=== PATIENT | male | born 1960 | race Caucasian/White ===

== ENCOUNTER 2021-04-28 06:08 | Inpatient (IN) | payer OTHER ==
[~2021-04-28] VITALS: Ht 172.7 cm; Wt 77.0 kg
[~2021-04-28 06:08] MED LIST: "\\\"BP MED\\\""; AZIT250 PO; HYDACE5 PO; [UNRECOGNIZED DRUG - REMARK]
[2021-04-28 06:34] LABS: BASOPHILS ABSOLUTE AUTO 0.11 K/mm3 (0.00-0.23); BASOPHILS PERCENT AUTO 1 % (0-2); EOSINOPHILS ABSOLUTE AUTO 0.02 K/mm3 (0.00-0.68); EOSINOPHILS PERCENT AUTO 0 % (0-6); Hematocrit 46.1 % (37.0-53.0); Hemoglobin 16.7 g/dL (13.5-17.5); IMMATURE GRAN ABSOLUTE AUTO 0.26 K/mm3 (0.00-0.10); IMMATURE GRAN PERCENT AUTO 1 % (0-1); LYMPHOCYTES ABSOLUTE AUTO 1.28 K/mm3 (0.84-5.20); LYMPHOCYTES PERCENT AUTO 7 % (21-46); MONOCYTES ABSOLUTE AUTO 0.91 K/mm3 (0.16-1.47); MONOCYTES PERCENT AUTO 5 % (4-13); Mean Corpuscular HGB 32.2 pg (26.0-34.0); Mean Corpuscular HGB Conc 36.2 g/dL (31.5-36.5); Mean Corpuscular Volume 89 fL (80-100); Mean Platelet Volume 10.1 fL (9.1-12.4); NEUTROPHILS ABSOLUTE AUTO 16.71 K/mm3 (1.96-9.15); NEUTROPHILS PERCENT AUTO 87 % (41-73); Platelet Count 271 K/mm3 (150-400); RDW Coefficient Variation 13.7 % (11.7-14.2); RDW Standard Deviation 45.1 fL (35.1-46.3); Red Blood Cell Count 5.19 M/mm3 (4.30-5.90); White Blood Cell Count 19.29 K/mm3 (4.00-11.30)
[2021-04-28 06:56] LABS: Alanine Aminotransfer (ALT/SGP 30 U/L (12-78); Albumin, Blood 3.5 g/dL (3.4-5.0); Albumin/Globulin Ratio 0.9 (0.8-1.8); Alk Phos 129 U/L (50-136); Anion Gap 17 mmol/L (6-16); Aspartate Aminotrans (AST/SGOT 21 U/L (12-37); Bilirubin, Total 0.6 mg/dL (0.1-1.0); Blood Urea Nitrogen 4 mg/dL (8-24); Bun/Creatinine Ratio 4.9 (12.0-20.0); CO2, Blood 19 mmol/L (21-32); Calcium, Blood 8.8 mg/dL (8.5-10.1); Chloride, Blood 101 mmol/L (98-108); Creatinine, Blood 0.82 mg/dL (0.60-1.20); Globulin, Blood 3.9 g/dL (2.2-4.0); Glomerular Filtration Rate >60 (60-); Glucose, Blood 135 mg/dL (70-99); Potassium, Blood 3.5 mmol/L (3.5-5.5); Sodium, Blood 137 mmol/L (136-145); Total Protein, Blood 7.4 g/dL (6.4-8.2); Troponin I <0.015 ng/mL (0.000-0.040)
[2021-04-28 11:04] LABS: Source, Urine Clean Catch
[2021-04-28 11:41] LABS: Appearance, Urine Clear (Clear); Bilirubin, Urine Neg (Neg); Blood, Urine Neg (Neg); Color, Urine Yellow (P-Yellow); Glucose Qualitative, Urine Neg (Neg); Ketones, Urine 1+ (Neg); Leukocyte Esterase, Urine Neg (Neg); Nitrite, Urine Neg (Neg); Protein, Urine 2+ (Neg); Urobilinogen, Urine NORM (Normal); pH, Urine 6.5 (5.0-8.0)
[2021-04-28 11:54] LABS: Hyaline Casts 0-2 /lpf (0-2)
[2021-04-28 11:55] LABS: Squamous Epithelial Cells Rare /hpf (Few)
[2021-04-28 11:56] LABS: Bacteria Not Seen /hpf
[2021-04-28 11:57] LABS: Mucus Heavy (0-Heavy)
[2021-04-28] MEDS ORDERED: ATOR10 PO (12:05)
[2021-04-28] MEDS ORDERED: AMLO5 PO (12:05)
[2021-04-28] MEDS ORDERED: BACL20 PO (12:07)
[2021-04-28] MEDS ORDERED: QUET25 PO (12:08)
[2021-04-28] MEDS ORDERED: LORA.5 PO (12:08)
[2021-04-28] MEDS ORDERED: MIRT15 PO (12:08)
[2021-04-28] MEDS ORDERED: SERT50 PO (12:09)
--- NOTE | 2021-04-28 15:55 | NUR ---
PATIENT ARRIVAL PATIENT ARRIVED TO PCU BY ED MARCIA AT APROX 1410. PATIENT TRANSFERD TO PCU BED WITH SBA. VSS. TELE SR 90S. SPO2 >90% ON RA. PATIENT A/OX4. PATIENT ORIENTATED TO THE BEDROOM AND CALL LIGHT. BED IN LOWEST POSITION AND CALL LIGHT WITHIN REACH. WILL CONTINUE TO MONITOR AND PROVIDE CARE
--- NOTE | 2021-04-28 18:04 | NUR ---
[facility] CALLED AT 1646 FOR CRITICAL LACTIC AT 2.3. ZAYRA RN NOTIFED . THIS RN NOTIFED CHARGE NURSE.
--- NOTE | 2021-04-28 18:11 | NUR ---
SHIFT SUMMARY PATIENT A/OX4. VSS. TELE SINUS 92. SPO2 >90% ON RA. NO ACUTE CHANGES. WILL CONTINUE TO MONITOR AND PROVIDE CARE.
[2021-04-28 20:05] LABS: Adenovirus F 40/41 Not Detected (NOT DETECT); Astrovirus Not Detected (NOT DETECT); Campylobacter Sp Not Detected (NOT DETECT); Cryptosporidium Not Detected (NOT DETECT); Cyclospora Cayetanensis Not Detected (NOT DETECT); E. Coli O157 Not Detected (NOT DETECT); Entamoeba Histolytica Not Detected (NOT DETECT); Enteroaggregative E. coli-EAEC Not Detected (NOT DETECT); Enteropathogenic E. coli-EPEC Not Detected (NOT DETECT); Enterotoxigenic E. coli-ETEC Not Detected (NOT DETECT); Giardia Lamblia Not Detected (NOT DETECT); Norovirus GI/GII Not Detected (NOT DETECT); Plesiomonas Shigelloides Not Detected (NOT DETECT); Rotavirus A Not Detected (NOT DETECT); Salmonella Sp Not Detected (NOT DETECT); Sapovirus Not Detected (NOT DETECT); Shiga Toxin-prod E. coli-STEC Not Detected (NOT DETECT); Shigella/Enteroin E. coli-EIEC Not Detected (NOT DETECT); Vibrio Cholerae Not Detected (NOT DETECT); Vibrio Sp Not Detected (NOT DETECT); Yersinia Enterocolitica Not Detected (NOT DETECT)
[2021-04-29 03:31] LABS: BASOPHILS ABSOLUTE AUTO 0.06 K/mm3 (0.00-0.23); BASOPHILS PERCENT AUTO 1 % (0-2); EOSINOPHILS PERCENT AUTO 2 % (0-6); Hematocrit 40.3 % (37.0-53.0); Hemoglobin 13.9 g/dL (13.5-17.5); IMMATURE GRAN ABSOLUTE AUTO 0.05 K/mm3 (0.00-0.10); IMMATURE GRAN PERCENT AUTO 0 % (0-1); LYMPHOCYTES ABSOLUTE AUTO 2.07 K/mm3 (0.84-5.20); LYMPHOCYTES PERCENT AUTO 17 % (21-46); MONOCYTES ABSOLUTE AUTO 0.92 K/mm3 (0.16-1.47); MONOCYTES PERCENT AUTO 7 % (4-13); Mean Corpuscular HGB 31.7 pg (26.0-34.0); Mean Corpuscular HGB Conc 34.5 g/dL (31.5-36.5); Mean Corpuscular Volume 92 fL (80-100); Mean Platelet Volume 10.7 fL (9.1-12.4); NEUTROPHILS ABSOLUTE AUTO 9.05 K/mm3 (1.96-9.15); NEUTROPHILS PERCENT AUTO 73 % (41-73); Platelet Count 208 K/mm3 (150-400); RDW Coefficient Variation 14.1 % (11.7-14.2); RDW Standard Deviation 47.8 fL (35.1-46.3); Red Blood Cell Count 4.38 M/mm3 (4.30-5.90); White Blood Cell Count 12.35 K/mm3 (4.00-11.30)
[2021-04-29 03:51] LABS: Alanine Aminotransfer (ALT/SGP 22 U/L (12-78); Albumin/Globulin Ratio 0.9 (0.8-1.8); Alk Phos 103 U/L (50-136); Anion Gap 5 mmol/L (6-16); Aspartate Aminotrans (AST/SGOT 19 U/L (12-37); Bilirubin, Total 0.8 mg/dL (0.1-1.0); Blood Urea Nitrogen 6 mg/dL (8-24); Bun/Creatinine Ratio 6.3 (12.0-20.0); CO2, Blood 27 mmol/L (21-32); Calcium, Blood 8.1 mg/dL (8.5-10.1); Chloride, Blood 107 mmol/L (98-108); Creatinine, Blood 0.95 mg/dL (0.60-1.20); Globulin, Blood 3.2 g/dL (2.2-4.0); Glomerular Filtration Rate >60 (60-); Glucose, Blood 89 mg/dL (70-99); Potassium, Blood 3.3 mmol/L (3.5-5.5); Sodium, Blood 139 mmol/L (136-145); Total Protein, Blood 6.2 g/dL (6.4-8.2)
--- NOTE | 2021-04-29 07:16 | NUR ---
SHIFT SUMMARY PT ALERT AND ORIENTED X4. HR NSR 80'S AND SATS OVER 95% ON RA. USES BEDSIDE URINAL TO VOID. ON AND OFF SLEEP THROUGHOUT THE NIGHT. BP STABLE. PT DENIES PAIN OR NAUSEA. PT HAS TREMORS WHILE MOVING. UNSTEADY ON FEET. PROGRESSIVE COUGH. PT LEFT IN BED RESTING WITH CALL ALARM AT SIDE. WILL CONTINUE TO MONITOR UNTIL REPORT GIVEN
--- NOTE | 2021-04-29 11:30 | NUR ---
WILL BE DOING IN HOUSE TRANSFER TO MEDICAL FLOOR ROOM 340 ONCE PATIENT IS DONE WITH THE BEDSIDE COMMODE. CALL LIGHT WITHIN REACH.
--- NOTE | 2021-04-29 12:09 | NUR ---
PT ARRIVED ON THE UNIT VIA WHEELCHAIR FROM PCU WITH RN. PATIENT IS ALERT AND ORIENTED X 4 TRANSFERRED STANBY ASSIST UNSTEADY GAIT W/TREMORS. SKIN ASSESSMENT COMPLETED SKIN IS WARM DRY AND ITACT NO OPEN AREAS. PATIENT HAS A NOTICABLE STUTTER WHEN TALKING. PATIENT IN STBLE CONDITION.
--- NOTE | 2021-04-29 15:11 | NUR ---
SHIFT SUMMARY PATIENT ARRIVED ON UNIT FROM PCU VIA WHEELCHAIR. PATIENT IS ALERT AND ORINTED X4 IN NO DISTRESS. NO COMPLAINTS OF PAIN. PATIENT GAIT IS UNSTEADY AND HAS TREMORS WHEN AMBULATING AND STUTTERS WHEN TALIKING FROM [place]. PATIENT COMPLANED OF ANXIOUSNESS NAD WAS MEDICATED. PATIENT IN STABLE CONDITION. LR INFUSING AT 100ML/HR.
[2021-04-30 04:41] LABS: BASOPHILS ABSOLUTE AUTO 0.09 K/mm3 (0.00-0.23); BASOPHILS PERCENT AUTO 1 % (0-2); EOSINOPHILS ABSOLUTE AUTO 0.23 K/mm3 (0.00-0.68); EOSINOPHILS PERCENT AUTO 3 % (0-6); Hematocrit 38.1 % (37.0-53.0); IMMATURE GRAN ABSOLUTE AUTO 0.04 K/mm3 (0.00-0.10); IMMATURE GRAN PERCENT AUTO 1 % (0-1); LYMPHOCYTES ABSOLUTE AUTO 2.63 K/mm3 (0.84-5.20); LYMPHOCYTES PERCENT AUTO 32 % (21-46); MONOCYTES ABSOLUTE AUTO 0.77 K/mm3 (0.16-1.47); MONOCYTES PERCENT AUTO 9 % (4-13); Mean Corpuscular HGB 31.6 pg (26.0-34.0); Mean Corpuscular HGB Conc 34.1 g/dL (31.5-36.5); Mean Corpuscular Volume 93 fL (80-100); Mean Platelet Volume 10.9 fL (9.1-12.4); NEUTROPHILS ABSOLUTE AUTO 4.52 K/mm3 (1.96-9.15); NEUTROPHILS PERCENT AUTO 55 % (41-73); Platelet Count 186 K/mm3 (150-400); RDW Coefficient Variation 14.1 % (11.7-14.2); RDW Standard Deviation 48.2 fL (35.1-46.3); Red Blood Cell Count 4.12 M/mm3 (4.30-5.90); White Blood Cell Count 8.28 K/mm3 (4.00-11.30)
[2021-04-30 05:08] LABS: Albumin, Blood 2.6 g/dL (3.4-5.0); Anion Gap 7 mmol/L (6-16); Blood Urea Nitrogen 5 mg/dL (8-24); Bun/Creatinine Ratio 6.2 (12.0-20.0); CO2, Blood 25 mmol/L (21-32); Chloride, Blood 109 mmol/L (98-108); Glomerular Filtration Rate >60 (60-); Glucose, Blood 92 mg/dL (70-99); Phosphorus, Blood 2.9 mg/dL (2.5-4.9); Sodium, Blood 141 mmol/L (136-145)
--- NOTE | 2021-04-30 06:47 | NUR ---
SHIFT SUMMARY PATIENT ALERT AND ORIENTED. HAD NO COMPLAINTS OF PAIN OR SHORTNESS OF BREATH. NO ACUTE ISSUES NOTED OVERNIGHT. CALL LIGHT WITHIN REACH. REPORT GIVEN TO ONCOMING RN.
--- NOTE | 2021-04-30 16:45 | NUR ---
SHIFT SUMMARY PATIENT IS ALERT AND ORIENTED X4 IN STABLE CONDITION. PATIENT COMPLAINED OF DIARRHEA X3 LOOSE STOOL AND MEDICATED. UNEVENTFUL SHIT. WILL CONTINUE TO MONITOR.
--- NOTE | 2021-05-01 06:37 | NUR ---
SHIFT SUMMARY PATIENT ALERT AND ORIENTED. HAD NO COMPLAINTS OF PAIN OR SHORTNESS OF BREATH. MEDICATED PER EMAR FOR ANXIETY. NO ACUTE ISSUES NOTED OVERNIGHT. CALL LIGHT WITHIN REACH. REPORT GIVEN TO ONCOMING RN.
--- NOTE | 2021-05-01 16:51 | NUR ---
PT AOX4 AND COOPERATIVE OF CARE. PT STARTED SHIFT WITH LOOSE STOOL. DR WASHINGTON REQUESTED AND UPDATE LATER IN THE DAY. PT HAS NOT HAD ANOTHER STOOL YET, BUT HAS ACTIVE BOWEL TONES. POSSIBLE DISCHARGE TOMORROW. PT IS A TWO PERSON ASSIST TO BEDSIDE COMMODE. NO DISTRESS NOTED AT THIS TIME. CALL LIGHT IS WITHIN REACH AND BED ALARM PLACED.
--- NOTE | 2021-05-02 06:22 | NUR ---
SHIFT SUMMARY PATIENT ALERT AND ORIENTED. HAD NO COMPLAINTS OF PAIN OR SHORTNESS OF BREATH. NO ACUTE ISSUES NOTED OVERNGIHT. CALL LIGHT WITHIN REACH. REPORT GIVEN TO ONCOMING RN.
[2021-05-02] MEDS ORDERED: POTA10T PO (13:33)
[2021-05-02] MEDS ORDERED: FAMO40 PO (13:33)
--- NOTE | 2021-05-02 14:22 | NUR ---
DISCHARGE NOTE THIS RN REMOVED PT'S IV PER DOCUMENTATION, DC INSTRUCTIONS REVIEWED WITH PT WHO VERBALIZED UNDERSTANDING. PT ASSISTED INTO HOME CLOTHING BY THIS RN. BELONGINGS GATHERED FROM ROOM. PT ASSISTED INTO WHEELCHAIR AND TRANSPORTED TO PRIVATE VEHICLE FOR DC BY DIGESTION OPERATOR. PT HAS LEFT THE BUILDING WITH BELONGINGS PRESENT.
== END 2021-05-02 14:25 | disposition home or self-care (01) | DRG 392 ==
LOC: ER 06:08 → PCU 12:05 → MEDS 04-29 11:44 → ENPENDDIS 05-02 12:58 → MEDS 05-02 14:25
PROVIDERS: Emergency Medicine; Family Medicine; Nurse Practitioner Acute Care; ADMIT Hospitalist
DX: A08.4 Viral intestinal infection, unspecified (principal); E87.2 Acidosis; Z66 Do not resuscitate; E87.6 Hypokalemia; Z20.822 Contact with and (suspected) exposure to COVID-19; G20 Parkinson's disease; I10 Essential (primary) hypertension; F17.210 Nicotine dependence, cigarettes, uncomplicated; D64.9 Anemia, unspecified; E86.0 Dehydration; F32.9 Major depressive disorder, single episode, unspecified; K21.00 Gastro-esophageal reflux disease with esophagitis, without bleeding; E78.5 Hyperlipidemia, unspecified; F41.9 Anxiety disorder, unspecified; Z87.11 Personal history of peptic ulcer disease; Z88.8 Allergy status to other drugs, medicaments and biological substances; Z79.899 Other long term (current) drug therapy
CPT/HCPCS: 0097U; 36415; 71045; 74177; 80053; 80069; 81001; 83605; 83690; 83735; 83880; 84132; 84145; 84484; 85025; 87040; 93005; 93010; 94762; 96365-59; 96375; 99285-25; A9270; C9113; J0696; J1650; J2405; J3475; J3480; J7030; J7050; J7120; Q9967

== ENCOUNTER 2024-08-26 22:09 | Inpatient (IN) | payer OTHER ==
[~2024-08-26] VITALS: Ht 170.2 cm; Wt 85.0 kg
[~2024-08-26 22:09] MED LIST changes: +AMLO5 PO; +ATOR10 PO; +BACL20 PO; +FAMO40 PO; +LORA.5 PO; +MIRT15 PO; +POTA10T PO; +QUET25 PO; +SERT50 PO
[2024-08-26 22:57] LABS: BASOPHILS ABSOLUTE AUTO 0.16 K/mm3 (0.00-0.23); BASOPHILS PERCENT AUTO 1 % (0-2); EOSINOPHILS ABSOLUTE AUTO 0.15 K/mm3 (0.00-0.68); EOSINOPHILS PERCENT AUTO 1 % (0-6); Hemoglobin 13.1 g/dL (13.5-17.5); IMMATURE GRAN ABSOLUTE AUTO 0.19 K/mm3 (0.00-0.10); IMMATURE GRAN PERCENT AUTO 2 % (0-1); LYMPHOCYTES ABSOLUTE AUTO 1.83 K/mm3 (0.84-5.20); LYMPHOCYTES PERCENT AUTO 16 % (21-46); MONOCYTES ABSOLUTE AUTO 0.52 K/mm3 (0.16-1.47); MONOCYTES PERCENT AUTO 5 % (4-13); Mean Corpuscular HGB 32.8 pg (26.0-34.0); Mean Corpuscular HGB Conc 33.6 g/dL (31.5-36.5); Mean Corpuscular Volume 98 fL (80-100); NEUTROPHILS ABSOLUTE AUTO 8.77 K/mm3 (1.96-9.15); NEUTROPHILS PERCENT AUTO 76 % (41-73); Platelet Count 641 K/mm3 (150-400); RDW Standard Deviation 86.3 fL (35.1-46.3); White Blood Cell Count 11.62 K/mm3 (4.00-11.30)
[2024-08-26 23:19] LABS: Acetaminophen, Random 10.9 ug/mL (10.0-30.0); Albumin, Blood 2.5 g/dL (3.4-5.0); Albumin/Globulin Ratio 0.6 (0.8-1.8); Bilirubin, Total 0.7 mg/dL (0.1-1.0); Bun/Creatinine Ratio 8.9 (12.0-20.0); Calcium, Blood 8.6 mg/dL (8.5-10.1); Creatinine, Blood 0.79 mg/dL (0.60-1.20); Globulin, Blood 4.4 g/dL (2.2-4.0); Potassium, Blood 4.3 mmol/L (3.5-5.5); Total Protein, Blood 6.9 g/dL (6.4-8.2)
[2024-08-26] MEDS ORDERED: Ketorolac Tromethamine 30mg Vial IV ONE (23:40)
[2024-08-27] VITALS (25 sets, daily range): BP systolic 112–156; BP diastolic 50–114
[2024-08-27] MEDS ORDERED: Ondansetron HCl 2 MG / ML 2ML Vial ONE (00:06)
[2024-08-27] MEDS ORDERED: Ondansetron HCl 2 MG / ML 2ML Vial IV ONE (00:10)
[2024-08-27 01:52] LABS: Albumin, Blood 2.6 g/dL (3.4-5.0); Albumin/Globulin Ratio 0.6 (0.8-1.8); Bilirubin, Direct 0.3 mg/dL (0.0-0.3); Bilirubin, Indirect 0.3 mg/dL (0.1-0.7); Bilirubin, Total 0.6 mg/dL (0.1-1.0); Globulin, Blood 4.4 g/dL (2.2-4.0)
[2024-08-27] MEDS ORDERED: FLU VACC TS2024-25(6MOS UP)/PF 45 MCG/0.5 ML SYRINGE IM ONE (02:10)
[2024-08-27 02:14] LABS: International Normalized Ratio 1.14; Prothrombin Time Results 12.1 Sec (9.7-11.5)
[2024-08-27] MEDS ORDERED: Ondansetron HCl 2 MG / ML 2ML Vial IV PRN (02:40)
[2024-08-27] MEDS ORDERED: Lactated Ringer's 1,000 ML IV SCH (03:00)
[2024-08-27 03:11] LABS: Acetaminophen, Random 5.8 ug/mL (10.0-30.0); Albumin, Blood 2.3 g/dL (3.4-5.0); Albumin/Globulin Ratio 0.6 (0.8-1.8); Bilirubin, Direct 0.4 mg/dL (0.0-0.3); Bilirubin, Indirect 0.3 mg/dL (0.1-0.7); Bilirubin, Total 0.7 mg/dL (0.1-1.0); Globulin, Blood 4.1 g/dL (2.2-4.0); Total Protein, Blood 6.4 g/dL (6.4-8.2)
[2024-08-27] MEDS ORDERED: Metoclopramide HCl 5MG / ML 2ML Vial IV PRN (04:10)
[2024-08-27] MEDS ORDERED: Heparin Sodium 10,000 Units/ML 1ML MDV IV ONE (07:35)
[2024-08-27] MEDS ORDERED: Heparin Sodium,Porcine/0.5 NS 500 ML IV SCH (07:35)
[2024-08-27 08:53] LABS: Acetaminophen, Random 2.4 ug/mL (10.0-30.0); Albumin, Blood 2.2 g/dL (3.4-5.0); Albumin/Globulin Ratio 0.6 (0.8-1.8); Bilirubin, Direct 0.2 mg/dL (0.0-0.3); Bilirubin, Indirect 0.5 mg/dL (0.1-0.7); Bilirubin, Total 0.7 mg/dL (0.1-1.0); Total Protein, Blood 6.2 g/dL (6.4-8.2)
[2024-08-27] MEDS ORDERED: Enoxaparin 40 MG/0.4 ML SYR SC SCH (09:00)
--- NOTE | 2024-08-27 09:40 | NUR ---
ADMIT NOTE... PT ARRIVED TO THE UNIT A&Ox4. PT'S VS STABLE. HE IS IN SR IN THE 80'S-90'S. HE IS ON RA WITH O2 SATS>95% L/S SLIGHTLY COARSE IN THE UPPER LOBES, PT IS AN EVERY DAY SMOKER, HE DECLINED ANY NICOTINE PATCHES/GUM. BT PRESENT AND HYPOACTIVE. PT C/O OF 5/10 NAUSEA THIS WAS MEDICATED PER EMAR WITH GOOD RESULTS. PT ARRIVED ON AN HEPARIN DRIP RUNNING PER ORDERS. NAC DRIP RUNNING PER ORDERS AND LR AT 100MLS/HR. PT WAS C/O OF 10/10 PAIN TO HIS RLE. PULSES FOUND TO THE BLE WITH DOPPLER.
[2024-08-27] MEDS ORDERED: FentaNYL Citrate 50 MCG/ML 2 ML Injection IV PRN (10:30)
[2024-08-27] MEDS ORDERED: Cyclobenzaprine HCl 10 MG Tab PO SCH (13:00)
[2024-08-27] MEDS ORDERED: Dose Adjust by Pharmacy XX STA (16:23)
--- NOTE | 2024-08-27 17:53 | NUR ---
BOIL/SORE ON PT'S LEFT LEG... PT HAS A BOIL/SORE ON HIS LEFT UPPER THIGH, PICTURES ARE IN THE CHART AND THE PROVIDERS ARE AWARE.
--- NOTE | 2024-08-27 17:54 | NUR ---
SHIFT SUMMARY.... NO ACUTE NEGATIVE CHANGES NOTED SINCE ADMIT. PT'S VS HAVE BEEN STABLE. THE PAIN TO THE PT'S RLE HAS GREATLY IMPROVED WITH FLEXERIL GIVEN PER EMAR. PT HAS REFUSED HIS DINNER BUT HAS AGREED TO DRINK THE ENSURE. PT HAS BEEN ABLE TO USE THE URINAL AT THE BEDSIDE INDEPENDENTLY. HEPARIN DRIP WAS DECREASED FROM 18U/KG/HR TO 17U/KG/HR PER PHARMACY. ACCORDING TO POISON CONTROL PT'S LFTs AND PT/INR SHOULD BE DRAWN AROUND 2300 TO DETERMINE IF ANOTHER DOSE OF N.A.C. SHOULD BE GIVEN NO LATER THAN 2HRS AFTER THE BAG IS DONE INFUSING. PULSES FOUND VIA DOPPLER.
[2024-08-27] MEDS ORDERED: QUEtiapine Fumarate 25 MG Tab PO SCH (21:00)
[2024-08-27] MEDS ORDERED: Mirtazapine 15 MG Tab PO SCH (21:00)
[2024-08-27] MEDS ORDERED: HYDROcodone 5-APAP 325 TAB PO PRN (23:00)
[2024-08-27 23:22] LABS: Anti-Xa UFH, PHA Monitoring 0.53 IU/mL; International Normalized Ratio 1.2; Prothrombin Time Results 12.7 Sec (9.7-11.5)
[2024-08-27 23:27] LABS: Albumin/Globulin Ratio 0.6 (0.8-1.8); Bilirubin, Direct 0.4 mg/dL (0.0-0.3); Bilirubin, Indirect 0.3 mg/dL (0.1-0.7); Bilirubin, Total 0.7 mg/dL (0.1-1.0); Globulin, Blood 3.5 g/dL (2.2-4.0); Total Protein, Blood 5.5 g/dL (6.4-8.2)
[2024-08-28] VITALS (18 sets, daily range): BP systolic 97–150; BP diastolic 54–86
[2024-08-28] MEDS ORDERED: Clarify Drug Order XX ONE ×2 (00:35→06:10)
--- NOTE | 2024-08-28 00:51 | NUR ---
POISON CONTROLLED CALLED AND UPDATED ON PT LABS/CONDITION. INSTRUCTED TO D/C NAC AFTER INFUSING BAG COMPLETE. WILL NOTIFY
[2024-08-28 05:00] LABS: BASOPHILS ABSOLUTE AUTO 0.13 K/mm3 (0.00-0.23); BASOPHILS PERCENT AUTO 1 % (0-2); EOSINOPHILS ABSOLUTE AUTO 0.24 K/mm3 (0.00-0.68); EOSINOPHILS PERCENT AUTO 2 % (0-6); Hematocrit 33.3 % (37.0-53.0); Hemoglobin 11.5 g/dL (13.5-17.5); IMMATURE GRAN ABSOLUTE AUTO 0.35 K/mm3 (0.00-0.10); IMMATURE GRAN PERCENT AUTO 3 % (0-1); LYMPHOCYTES ABSOLUTE AUTO 3.67 K/mm3 (0.84-5.20); LYMPHOCYTES PERCENT AUTO 27 % (21-46); MONOCYTES ABSOLUTE AUTO 1.43 K/mm3 (0.16-1.47); MONOCYTES PERCENT AUTO 11 % (4-13); Mean Corpuscular HGB Conc 34.5 g/dL (31.5-36.5); Mean Corpuscular Volume 96 fL (80-100); Mean Platelet Volume 8.8 fL (9.1-12.4); NEUTROPHILS ABSOLUTE AUTO 7.71 K/mm3 (1.96-9.15); NEUTROPHILS PERCENT AUTO 57 % (41-73); Platelet Count 526 K/mm3 (150-400); RDW Coefficient Variation 24.9 % (11.7-14.2); RDW Standard Deviation 83.6 fL (35.1-46.3); Red Blood Cell Count 3.48 M/mm3 (4.30-5.90); White Blood Cell Count 13.53 K/mm3 (4.00-11.30)
--- NOTE | 2024-08-28 05:13 | NUR ---
SHIFT SUMMERY PT HAS HAD NO ACUTE CHANGES OVERNIGHT, LABS IMPROVING. PT HAS BEEN ALERT AND ORIENTED X4. PAIN MANAGED PER EMAR. PULSES REMAIN INTACT IN BLE. PT IS TOLERATING PO W/OUT N/V. HE HAS BEEN CONTINENT OF URINE. HE IS ABLE TO MAKE NEEDS KNOWN AND HAS BEEN COMPLIANT W/CARE. HE HAS BEEN ST ON THE PHYSICIAN IN PRIVATE PRACTICE. BP WNL. OXYGEN SAT >92% ON ROOM AIR.
[2024-08-28 05:40] LABS: Albumin, Blood 2.1 g/dL (3.4-5.0); Albumin/Globulin Ratio 0.6 (0.8-1.8); Bilirubin, Total 0.8 mg/dL (0.1-1.0); Bun/Creatinine Ratio 5.3 (12.0-20.0); Calcium, Blood 8.5 mg/dL (8.5-10.1); Creatinine, Blood 0.76 mg/dL (0.60-1.20); Globulin, Blood 3.6 g/dL (2.2-4.0); Potassium, Blood 3.2 mmol/L (3.5-5.5); Total Protein, Blood 5.7 g/dL (6.4-8.2)
[2024-08-28] MEDS ORDERED: Potassium Chloride 20 MEQ TabCR PO ONE ×2 (07:15→11:05)
[2024-08-28] MEDS ORDERED: DULoxetine HCL 30 MG Cap DR PO ONE (08:30)
[2024-08-28] MEDS ORDERED: Sertraline HCl 50 MG Tab PO SCH (09:00)
[2024-08-28] MEDS ORDERED: Gabapentin 300 MG Cap PO SCH (10:00)
[2024-08-28] MEDS ORDERED: Pregabalin 75 MG Cap PO SCH (10:00)
[2024-08-28] MEDS ORDERED: Dose Adjust by Pharmacy XX STA (11:29)
--- NOTE | 2024-08-28 11:54 | NUR ---
ASSUMED CARE AT 0700, PT IS A/OX4 WITH SLIGHTLY SLURRED SPEECH. HE REPORTS 9/10 PAIN IN HIS RLE. TREATING PER OCT. VERBALIZES NEEDS AND OBEYS COMMANDS. VSS, WITH INTERMITTENT TACHYCARDIA 110'S-120'S WITH MOVEMENT. CURRENTLY ON HEPARIN GTT AT 17. PAIN IS BEING MANAGED MODERATELY WELL WITH CURRENT ORDERS. PT TO START NEW MEDICATIONS, SEE NEW ORDERS. BLE WARM TO TOUCH, VERY DRY, PULSES PALPABLE WITH DOPPLER ONLY. PT ABLE TO AMBULATE FROM BED TO CHAIR WITH FWW, BUT VERY WEAK AND UNSTEADY. PT ALSO REPORTED DIZZINESS AND LIGHTHEADEDNESS WITH AMBULATION. PT THEN REPORTED NAUSEA AND BEGAN VOMITING. TREATED WITH ZOFRAN PER EMAR. OT/PT EVAL FOR HOME HEALTH/SNF NEEDS. PT STATUS CHANGED TO MED W/O TELE AT THIS TIME.
--- NOTE | 2024-08-28 17:18 | NUR ---
SHIFT SUMMARY PT A/OX4, OBEYS COMMANDS, VERBALIZES NEEDS. PT REPORTS 5-9/10 PAIN IN HIS RIGHT LEG T/O SHIFT. SINUS RHYTHM WITH HR IN 100'S-110'S, PT CHANGED TO MEDICAL STATUS W/O TELEMETRY TODAY. PT DENIES CHEST PAIN/PRESSURE. PEDAL PULSES AUDIBLE WITH DOPPLER. NO BM, PT DID REPORT NAUSEA FOLLOWED WITH VOMITING, MEDICATED PER EMAR. ON RA, SATTING ABOVE 90%. PT WORKED WITH OT/PT, TODAY. SEE ASSESSMENTS.
--- NOTE | 2024-08-28 23:44 | NUR ---
PT NOTED TO BE TACHYCARDIC. PLACED ON MONITOR, RATE 140-160. HAS NOW SLOWED TO 100S. EKG DONE-AFIB RVR. NOTIFIED DR PAGE. ORDERS GIVEN. PT DENIES ANY CHEST PAIN/DISCOMFORT. HEPARIN GTT ALREADY INFUSING. BP WNL AT THIS TIME.
[2024-08-28] MEDS ORDERED: Metoprolol Tartrate 1 MG/ML 5 ML VIAL IV ONE (23:45)
[2024-08-29] VITALS (11 sets, daily range): BP systolic 81–145; BP diastolic 60–96
--- NOTE | 2024-08-29 00:15 | NUR ---
PT GIVEN LOPRESSOR. SR IN THE 80S. PT DID MIGUEL BREIFLY BUT BP REMAINED STABLE. PT LOC DID NOT CHANGE, HE DID REPORT SOME DIZZINESS THAT RESOLVED. PT PLACED ON 3L NC. DR PAGE NOTIFIED.
[2024-08-29] MEDS ORDERED: Cyclobenzaprine HCl 10 MG Tab PO PRN (00:55)
[2024-08-29 03:30] LABS: Hematocrit 28.9 % (37.0-53.0); Hemoglobin 9.5 g/dL (13.5-17.5); Mean Corpuscular HGB 32.5 pg (26.0-34.0); Mean Corpuscular HGB Conc 32.9 g/dL (31.5-36.5); Mean Corpuscular Volume 99 fL (80-100); Mean Platelet Volume 9.2 fL (9.1-12.4); NRBC ABSOLUTE 0.07 K/mm3 (0.00-0.02); NRBC Auto 0.5 /100 WBC (0.0-0.2); Platelet Count 479 K/mm3 (150-400); RDW Coefficient Variation 25.2 % (11.7-14.2); RDW Standard Deviation 86.8 fL (35.1-46.3); Red Blood Cell Count 2.92 M/mm3 (4.30-5.90); White Blood Cell Count 13.39 K/mm3 (4.00-11.30)
[2024-08-29 03:57] LABS: Alanine Aminotransfer (ALT/SGP 66 U/L (12-78); Albumin/Globulin Ratio 0.6 (0.8-1.8); Alk Phos 131 U/L (50-136); Anion Gap 13 mmol/L (3-11); Aspartate Aminotrans (AST/SGOT 15 U/L (12-37); Bilirubin, Total 0.7 mg/dL (0.1-1.0); Blood Urea Nitrogen 6 mg/dL (8-24); Bun/Creatinine Ratio 7.3 (12.0-20.0); CHOL/HDL RATIO 3.8; CO2, Blood 24 mmol/L (21-32); Calcium, Blood 8.3 mg/dL (8.5-10.1); Chloride, Blood 108 mmol/L (98-108); Cholesterol 96 mg/dL (50-200); Creatinine, Blood 0.82 mg/dL (0.60-1.20); Globulin, Blood 3.4 g/dL (2.2-4.0); Glomerular Filtration Rate 99 (60-); Glucose, Blood 94 mg/dL (70-99); HDL Cholesterol 25 mg/dL (>39); LDL/HDL RATIO 0.7; Low Density Lipoprotein Chol 17 mg/dL (0-110); Potassium, Blood 3.6 mmol/L (3.5-5.5); Sodium, Blood 141 mmol/L (136-145); Total Protein, Blood 5.4 g/dL (6.4-8.2); Triglycerides 272 mg/dL (30-160); Very Low Density Lipoprot Chol 54 mg/dL (6-32)
--- NOTE | 2024-08-29 05:51 | NUR ---
SHIFT SUMMERY PT HAS BEEN ALERT AND ORIENTED X4 AND HAS RESTED WELL OVERNIGHT. HE DID GO INTO AFIB W/RVR. MEDICATIONS GIVEN PER MD ORDER. PT CONVERTED BACK INTO SR. BP WNL. OXYGEN SAT >92% ON 3LNC. PT VOIDS IN THE URINAL. HEPARIN GTT INFUSING PER MD ORDER, SEE [facility]. PULSES INTACT, MARKED FOR DOPPLER BLE.
[2024-08-29] MEDS ORDERED: Dose Adjust by Pharmacy XX STA (06:25)
[2024-08-29 06:59] LABS: Percent Saturation 43.7 % (20.0-50.0)
--- NOTE | 2024-08-29 08:15 | NUR ---
[place] of care: Patient is alert, oriented, & pleasant, resting in bed. Does complain of 7/10 pain to R thigh. In ST 100-105, with stable blood pressures. Oxygen saturation of 99% so weaned from 3L NC to RA with oxygen sat currently 92%. Clear lung sounds but does have a congested cough, non-productive. Bilat pedal pulses dopplerable. Heparin gtt infusing. Orders for med floor with tele. Will continue to monitor.
[2024-08-29] MEDS ORDERED: DULoxetine HCL 30 MG Cap DR PO SCH (09:00)
--- NOTE | 2024-08-29 09:13 | NUR ---
PT ARRIVED TO UNIT. PATIENT TRANSFFERED TO OUR BED VIA SLIDING. VITAL SIGNS TAKEN AND STABLE. PULSES FOUND VIA DOOPPLER AND HELL PROTECTORS WERE ADDED FOR PROTECTION. BED AT THE LOWEST POSIITON AND CALL ILGHT WITHINR EACH.
--- NOTE | 2024-08-29 09:23 | NUR ---
THIS RN TO ASSUME CARE OF PATIENT. PATIENT IS RESTING IN ROOM AFTER BEING SETTLED IN AND ASSESSMENT DONE. PATIENT HAS BED AT THE LOWEST POSITION , CALL LIGHT WITHIN REACH, EVEN AND UNLABORED RESPIRATIONS.
--- NOTE | 2024-08-29 09:47 | NUR ---
md to bedside: md urrutia to bedside and talked with patient. md would like verification of medications the patient takes as he can't recall. would like to patient to work with physical therapy and we are waiting on his insurance to approve a rehab and patient will status change to medical.
--- NOTE | 2024-08-29 10:50 | NUR ---
PATIENT REPORTS THAT PAIN IS STILL THE SAME AFTER GIVNG MORE MEDICATION PER EMAR. THIS RN OFFERED A HEATING PAD TO THIGH AND PATIENT AGREED. WILL CHECK IN AFTER HEATING PAD HAS WARMED UP. PATIENT HAS CALL LIGHT WITHIN REACH, BED AT THE LOWEST POSITION AND WATCHING TV.
--- NOTE | 2024-08-29 14:50 | NUR ---
PATIENT LEFT TO IMAGING VIA GURNEY.
--- NOTE | 2024-08-29 15:07 | NUR ---
patient returned from imaging and was transffered via slider sheet back to bed. vital signs taken and stable. patient states his pain level continues to be a 7-8 in his right thigh but declined the fetanyl as he stated he didn't feel any relief. Is now getting a bed bath from [facility].
--- NOTE | 2024-08-29 15:57 | NUR ---
CALL PLACED TO RESIDENT: THIS RN CALLED RESIDENT ON CASE TO REQUEST BOWEL CARE MEDS PATIENT STATED IT HAD BEEN SEVERAL DAYS WITHOUT HAVING ONE. MD TO PLACE ORDERS.
--- NOTE | 2024-08-29 17:00 | NUR ---
SHIFT SUMMARY: PATIENT IS ALERT AND ORIENTED X4 AND ACTIVE IN HIS CARE. ON TELE SHOWING TACH WITH RATE 110. IS SATTING >92% ON 1 LITER VIA NASAL CANNULA. PATIENT DENIES WEARING OXYGEN AT HOME BUT IS NEEDING SOME HE DESATS TO 80'S. OREN WORKED WITH PHYSICAL THERAPY TODAY AND WAS ABLE TO WALK AROUND IN ROOM AND GET INTO CHAIR. PATIENT NEEDED AROUND THE CLOCK COVERAGE FOR PAIN AND NEEDED MEDICATIONS PER EMAR FOR BREAKTHROUGH PAIN. PATIENT HAD A CHEST X-RAY DONE AND CURRENTLY WAITING FOR RESULTS. HEPARIN DRIP CONTINUES PER EMAR. THIS RN CALLED RESIDENT TEAM TO ADD BOWEL CARE MEDICATIONS AND RESIDENT STATED HE WOULD PLACE ORDERS. PATIENT WAS ABLE TO GET SOME REST UPON TRANSFERRING TO OUR UNIT. WILL CONTINUE TO MONITOR UNTIL SHIFT CHANGE AND NIGHT RN ASSUMES CARE.
[2024-08-29] MEDS ORDERED: Polyethylene Glycol 3350 17 gm PO PRN (17:05)
[2024-08-29] MEDS ORDERED: Docusate Sodium/Senna 1 Tab PO PRN (17:05)
--- NOTE | 2024-08-29 18:29 | NUR ---
REPORT WAS CALLED AND GIVEN TO OSVALDO COONEY WHO WILL BE RECEIVING PATIENT.
--- NOTE | 2024-08-29 18:46 | NUR ---
TRANSFER NOTE: PATIENT WAS TRANSFERRED VIA BED WITH ALL PERSONAL BELONGINGS. PATIENT IS ALERT AND ORIENTED X4 AND COOPERATIVE WITH HIS CARE. PATIENT DENIED NEEDING TO NOTIFY ANYONE OF THE MOVE IN ROOMS. WAS NOT CONNECTED TO OXYGEN ON THE TRANSFER.
--- NOTE | 2024-08-29 18:49 | NUR ---
PT TRANSFERED FROM U. REPORT RECEIVED FROM FELECIA COONEY.
[2024-08-30 02:48] VITALS: BP 122/69
[2024-08-30] MEDS ORDERED: Dose Adjust by Pharmacy XX STA (04:04)
[2024-08-30] MEDS ORDERED: Heparin Sodium 5000 Units/ML 1ML MDV IV ONE (04:05)
--- NOTE | 2024-08-30 06:15 | NUR ---
NIGHT SHIIFT SUMMARY PT A/OX4. PLEASANT AND COOPERATIVE. ABLE TO MAKE NEEDS KNOWN. PT C/O OF 8-10/10 PAIN IN RIGHT LEG. RIGHT LEG MORE SWOLLEN THAN THE LEFT LEG. HEPARIN DOSING CHANGED AND BOLUS GIVEN. CALL LIGHT ACCESSIBLE. CARE WILL CONTINUE UNTIL REPORT GIVEN TO ONCOMING NURSE.
[2024-08-30 08:11] VITALS: BP 108/68
[2024-08-30 09:00] LABS: Hematocrit 26.8 % (37.0-53.0); Hemoglobin 8.8 g/dL (13.5-17.5); Mean Corpuscular HGB 33.7 pg (26.0-34.0); Mean Corpuscular HGB Conc 32.8 g/dL (31.5-36.5); Mean Corpuscular Volume 103 fL (80-100); Mean Platelet Volume 10.8 fL (9.1-12.4); NRBC ABSOLUTE 0.04 K/mm3 (0.00-0.02); NRBC Auto 0.4 /100 WBC (0.0-0.2); Platelet Count 447 K/mm3 (150-400); RDW Coefficient Variation 23.9 % (11.7-14.2); RDW Standard Deviation 87.1 fL (35.1-46.3); Red Blood Cell Count 2.61 M/mm3 (4.30-5.90); White Blood Cell Count 11.22 K/mm3 (4.00-11.30)
[2024-08-30 09:11] LABS: Albumin/Globulin Ratio 0.6 (0.8-1.8); Bilirubin, Total 0.4 mg/dL (0.1-1.0); Calcium, Blood 8.6 mg/dL (8.5-10.1); Creatinine, Blood 0.66 mg/dL (0.60-1.20); Globulin, Blood 3.5 g/dL (2.2-4.0); Potassium, Blood 3.2 mmol/L (3.5-5.5); Total Protein, Blood 5.5 g/dL (6.4-8.2)
[2024-08-30 09:32] LABS: BAND PERCENT MAN 2 % (0-8); BASOPHILS PERCENT MAN 0 % (0-2); EOSINOPHILS ABSOLUTE MAN 0.22 K/mm3 (0.00-0.68); EOSINOPHILS PERCENT MAN 2 % (0-6); LYMPHOCYTES ABSOLUTE MAN 3.14 K/mm3 (0.84-5.20); LYMPHOCYTES PERCENT MAN 28 % (21-46); MONOCYTES ABSOLUTE MAN 0.44 K/mm3 (0.16-1.47); MONOCYTES PERCENT MAN 4 % (4-13); MYELOCYTE ABSOLUTE MAN 0.44 K/mm3 (0.00-0.00); MYELOCYTE PERCENT MAN 4 % (0-0); NEUTROPHILS ABSOLUTE MAN 6.95 K/mm3 (1.96-9.15); SEG NEUTROPHILS PERCENT MAN 60 % (41-73); TOTAL CELLS COUNTED 100
[2024-08-30] MEDS ORDERED: Apixaban 5 MG Tab PO SCH (12:42)
[2024-08-30 15:53] VITALS: BP 107/61
[2024-08-30] MEDS ORDERED: Potassium Chloride 20 MEQ TabCR PO ONE (16:00)
--- NOTE | 2024-08-30 17:00 | NUR ---
SHIFT SUMMARY PATIENT MEDICATED FOR PAIN THROUGHOUT SHIFT WITH SOME RELIEF. ELAQUIS STARTED HEPARIN DRIP STOPPED. HE IS ORIENTEDX4 AND COOPERATIVE WITH CARE. BED IN LOWEST POSITION, CALL LIGHT IN REACH.
[2024-08-30 19:14] VITALS: BP 101/62
[2024-08-31 02:46] VITALS: BP 119/71
--- NOTE | 2024-08-31 04:35 | NUR ---
SHIFT SUMMARY: "MELO" IS A&OX4. VSS, O2 REQUIRIED TITRATING UP WHILE PT WAS SLEEPING (SNORING RESPIRATIONS NOTED) TO 3-4 LPM, BACK DOWN TO 1 LPM WHILE AWAKE. CONTINUOUS PULSE OX IN PLACE. HE IS USING THE URINAL WITHOUT DIFFICULTY AND HAS COMPLAINED OF POORLY CONTROLLED PAIN IN HIS RIGHT LEG. PT STATES HE DISCUSSED WITH THE DOCTOR YESTERDAY AND WAS EXPECTING NEW PAIN MEDICATION ORDERS. UNFORTUNATELY, THE DOCTOR'S NOTE FROM YESTERDAY IS NOT AVAILABLE AT THIS TIME. HE IS ABLE TO TURN AND REPOSITION HIMSELF IN BED, HAS NOT BEEN OOB THIS SHIFT. HE IS LYING IN BED WITH THE CALL LIGHT IN REACH. WILL GIVE REPORT TO THE ONCOMING NURSE.
[2024-08-31 06:56] LABS: Hematocrit 26.7 % (37.0-53.0); Hemoglobin 8.6 g/dL (13.5-17.5); Mean Corpuscular HGB 32.8 pg (26.0-34.0); Mean Corpuscular HGB Conc 32.2 g/dL (31.5-36.5); Mean Corpuscular Volume 102 fL (80-100); NRBC ABSOLUTE 0.06 K/mm3 (0.00-0.02); NRBC Auto 0.5 /100 WBC (0.0-0.2); Platelet Count 472 K/mm3 (150-400); RDW Coefficient Variation 25.2 % (11.7-14.2); RDW Standard Deviation 90.9 fL (35.1-46.3); Red Blood Cell Count 2.62 M/mm3 (4.30-5.90); White Blood Cell Count 12.51 K/mm3 (4.00-11.30)
[2024-08-31 07:11] LABS: Albumin, Blood 2.1 g/dL (3.4-5.0); Albumin/Globulin Ratio 0.6 (0.8-1.8); Bilirubin, Total 0.4 mg/dL (0.1-1.0); Bun/Creatinine Ratio 8.5 (12.0-20.0); Calcium, Blood 8.6 mg/dL (8.5-10.1); Creatinine, Blood 0.71 mg/dL (0.60-1.20); Globulin, Blood 3.6 g/dL (2.2-4.0); Potassium, Blood 3.6 mmol/L (3.5-5.5); Total Protein, Blood 5.7 g/dL (6.4-8.2)
[2024-08-31 07:21] VITALS: BP 109/68
[2024-08-31 07:26] LABS: BASOPHILS PERCENT MAN 0 % (0-2); EOSINOPHILS PERCENT MAN 0 % (0-6); LYMPHOCYTES PERCENT MAN 24 % (21-46); METAMYELOCYTE ABSOLUTE MAN 0.25 K/mm3 (0.00-0.00); METAMYELOCYTE PERCENT MAN 2 % (0-0); MONOCYTES ABSOLUTE MAN 0.87 K/mm3 (0.16-1.47); MONOCYTES PERCENT MAN 7 % (4-13); MYELOCYTE ABSOLUTE MAN 0.75 K/mm3 (0.00-0.00); MYELOCYTE PERCENT MAN 6 % (0-0); NEUTROPHILS ABSOLUTE MAN 7.63 K/mm3 (1.96-9.15); SEG NEUTROPHILS PERCENT MAN 61 % (41-73); TOTAL CELLS COUNTED 100
[2024-08-31] MEDS ORDERED: Pregabalin 75 MG Cap PO SCH (11:00)
[2024-08-31 16:30] VITALS: BP 103/74
[2024-08-31 19:21] VITALS: BP 103/92
--- NOTE | 2024-08-31 19:26 | NUR ---
MELO WORKED WITH PHYSICAL THERAPY TODAY. PT RECOMMENDS 2 PERSON ASSIT WITH GB AND FWW. 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 PAIN TO HIS RIGHT THIGH/LEG. DR. DELGADO WITH ORDERS TO INCREASE PT'S LYRICA DOSE TO 300 MG BID TO CONTROL PAIN. D/C PLAN IS POSSIBLY TO [facility]. A&O X4. OXYGEN AT 1LPM DURING THE DAY TODAY. NO C/O SOB, BUT HE IS WEAK WITH TRANSFERRING. TELE IS SINUS IN THE 70'S WITH A BUNDLE BRANCH BLOCK. NO ADVERSE EVENTS TODAY.
[2024-09-01 03:29] VITALS: BP 124/59
--- NOTE | 2024-09-01 05:30 | NUR ---
SHIFT SUMMARY: URIEL IS A&OX4. VSS, O2 TITRATION REQUIRED WHILE PT SLEEPING, MAX 4 LPM. HE IS TOLERATING PO INTAKE WELL, USING THE URINAL WITHOUT DIFFICULTIES, AND HAS RESTED QUIETLY FOR THE MAJORITY OF THE SHIFT. HE COMPLAINED OF PAIN IN HIS RIGHT LEG AT THE BEGINNIG OF THE SHIFT, BUT HAS NOT COMPLAINED SINCE. IV TO BILATERAL ACs PATENT. HE IS LYING IN BED WITH THE CALL LIGHT IN REACH, BED IN LOWEST POSITION. WILL GIVE REPORT TO ONCOMING SHIFT.
[2024-09-01 05:53] LABS: BASOPHILS ABSOLUTE AUTO 0.14 K/mm3 (0.00-0.23); BASOPHILS PERCENT AUTO 1 % (0-2); EOSINOPHILS ABSOLUTE AUTO 0.57 K/mm3 (0.00-0.68); EOSINOPHILS PERCENT AUTO 4 % (0-6); Hematocrit 27.4 % (37.0-53.0); Hemoglobin 8.9 g/dL (13.5-17.5); IMMATURE GRAN PERCENT AUTO 6 % (0-1); LYMPHOCYTES ABSOLUTE AUTO 2.81 K/mm3 (0.84-5.20); LYMPHOCYTES PERCENT AUTO 19 % (21-46); MONOCYTES PERCENT AUTO 11 % (4-13); Mean Corpuscular HGB 33.1 pg (26.0-34.0); Mean Corpuscular HGB Conc 32.5 g/dL (31.5-36.5); Mean Corpuscular Volume 102 fL (80-100); Mean Platelet Volume 9.9 fL (9.1-12.4); NEUTROPHILS PERCENT AUTO 59 % (41-73); NRBC ABSOLUTE 0.04 K/mm3 (0.00-0.02); NRBC Auto 0.3 /100 WBC (0.0-0.2); Platelet Count 429 K/mm3 (150-400); RDW Coefficient Variation 24.9 % (11.7-14.2); RDW Standard Deviation 90.3 fL (35.1-46.3); Red Blood Cell Count 2.69 M/mm3 (4.30-5.90); White Blood Cell Count 14.82 K/mm3 (4.00-11.30)
[2024-09-01 06:17] LABS: Albumin, Blood 1.9 g/dL (3.4-5.0); Albumin/Globulin Ratio 0.5 (0.8-1.8); Bilirubin, Total 0.5 mg/dL (0.1-1.0); Calcium, Blood 8.7 mg/dL (8.5-10.1); Creatinine, Blood 0.75 mg/dL (0.60-1.20); Globulin, Blood 3.7 g/dL (2.2-4.0); Potassium, Blood 3.8 mmol/L (3.5-5.5); Total Protein, Blood 5.6 g/dL (6.4-8.2)
[2024-09-01 06:32] LABS: BASOPHILS ABSOLUTE MAN 0.14 K/mm3 (0.00-0.23); BASOPHILS PERCENT MAN 1 % (0-2); EOSINOPHILS ABSOLUTE MAN 1.03 K/mm3 (0.00-0.68); EOSINOPHILS PERCENT MAN 7 % (0-6); LYMPHOCYTES ABSOLUTE MAN 2.37 K/mm3 (0.84-5.20); LYMPHOCYTES PERCENT MAN 16 % (21-46); MONOCYTES ABSOLUTE MAN 1.18 K/mm3 (0.16-1.47); MONOCYTES PERCENT MAN 8 % (4-13); MYELOCYTE ABSOLUTE MAN 0.44 K/mm3 (0.00-0.00); MYELOCYTE PERCENT MAN 3 % (0-0); NEUTROPHILS ABSOLUTE MAN 9.63 K/mm3 (1.96-9.15); SEG NEUTROPHILS PERCENT MAN 65 % (41-73); TOTAL CELLS COUNTED 100
[2024-09-01 07:28] VITALS: BP 89/57
[2024-09-01] MEDS ORDERED: Ketorolac Tromethamine 15mg Vial IV PRN (07:30)
[2024-09-01] MEDS ORDERED: Potassium Chloride 20 MEQ TabCR PO ONE (14:20)
[2024-09-01 15:54] VITALS: BP 105/62
--- NOTE | 2024-09-01 18:09 | NUR ---
PT IS AO AND COOPERATIVE OF CARE. PT IS ABLE TO BE 2 PERSON TO BED OR CHAIR. PT IS ABLE TO USE CALL LIGHT AND MAKE NEEDS KNOWN. PT WORKED WITH PHYSICAL THERAPY TODAY AND WAS UP IN CHAIR FOR MEALS. TREATED LEG PAIN PER EMAR. NO DISTRESS NOTED AND CALL LIGHT WITHIN REACH. WILL CONTINUE TO MONITOR.
[2024-09-01 19:26] VITALS: BP 131/72
[2024-09-02 02:35] VITALS: BP 109/61
[2024-09-02 08:35] LABS: BASOPHILS ABSOLUTE AUTO 0.17 K/mm3 (0.00-0.23); BASOPHILS PERCENT AUTO 1 % (0-2); EOSINOPHILS ABSOLUTE AUTO 0.66 K/mm3 (0.00-0.68); EOSINOPHILS PERCENT AUTO 4 % (0-6); Hematocrit 31.6 % (37.0-53.0); IMMATURE GRAN ABSOLUTE AUTO 0.67 K/mm3 (0.00-0.10); IMMATURE GRAN PERCENT AUTO 5 % (0-1); LYMPHOCYTES ABSOLUTE AUTO 3.02 K/mm3 (0.84-5.20); LYMPHOCYTES PERCENT AUTO 20 % (21-46); MONOCYTES ABSOLUTE AUTO 1.56 K/mm3 (0.16-1.47); MONOCYTES PERCENT AUTO 11 % (4-13); Mean Corpuscular HGB 32.6 pg (26.0-34.0); Mean Corpuscular HGB Conc 31.6 g/dL (31.5-36.5); Mean Corpuscular Volume 103 fL (80-100); Mean Platelet Volume 10.3 fL (9.1-12.4); NEUTROPHILS ABSOLUTE AUTO 8.78 K/mm3 (1.96-9.15); NEUTROPHILS PERCENT AUTO 59 % (41-73); NRBC ABSOLUTE 0.02 K/mm3 (0.00-0.02); NRBC Auto 0.1 /100 WBC (0.0-0.2); Platelet Count 513 K/mm3 (150-400); RDW Coefficient Variation 24.4 % (11.7-14.2); RDW Standard Deviation 87.9 fL (35.1-46.3); Red Blood Cell Count 3.07 M/mm3 (4.30-5.90); White Blood Cell Count 14.86 K/mm3 (4.00-11.30)
[2024-09-02 08:53] LABS: Albumin, Blood 2.6 g/dL (3.4-5.0); Albumin/Globulin Ratio 0.6 (0.8-1.8); Bilirubin, Total 0.5 mg/dL (0.1-1.0); Bun/Creatinine Ratio 18.3 (12.0-20.0); Calcium, Blood 9.4 mg/dL (8.5-10.1); Creatinine, Blood 0.66 mg/dL (0.60-1.20); Globulin, Blood 4.5 g/dL (2.2-4.0); Magnesium, Blood 2.3 mg/dL (1.6-2.4); Potassium, Blood 4.6 mmol/L (3.5-5.5); Total Protein, Blood 7.1 g/dL (6.4-8.2)
[2024-09-02] MEDS ORDERED: ELIQUIS5 M2 PO (11:43)
[2024-09-02] MEDS ORDERED: KETO10 PO (11:44)
[2024-09-02] MEDS ORDERED: PREG300 PO (11:45)
--- NOTE | 2024-09-02 15:22 | NUR ---
PT WAS TRANSFERED TO [facility] VIA WHEELCHAIR TRANSPORT. AO AND COOPERATIVE OF CARE. ONE PERSON TRANFER TO WHEELCHAIR. NO DISTRESS NOTED. REPORT CALLED PRIOR TO TRANSPORT. ALL PERSONAL BELONING WITH PT.
== END 2024-09-02 14:58 | DRG 918 ==
LOC: ER 22:09 → MEDS 08-27 02:07 → ERHOLD 08-27 02:07 → ICUE 08-27 02:07 → PCU 08-27 02:07 → ICUE 08-27 09:26 → PCU 08-29 09:01 → MEDS 08-29 18:36
PROVIDERS: Emergency Medicine; Student in an Organized Health Care Education/Training Program; ADMIT Student in an Organized Health Care Education/Training Program
DX: T39.1X1A Poisoning by 4-Aminophenol derivatives, accidental (unintentional), initial encounter (principal); I74.5 Embolism and thrombosis of iliac artery; J98.11 Atelectasis; Z66 Do not resuscitate; I10 Essential (primary) hypertension; E78.5 Hyperlipidemia, unspecified; F41.9 Anxiety disorder, unspecified; Z79.899 Other long term (current) drug therapy; N20.0 Calculus of kidney; G20.A1 Parkinson's disease without dyskinesia, without mention of fluctuations; Z87.891 Personal history of nicotine dependence; M54.10 Radiculopathy, site unspecified; E87.6 Hypokalemia; I48.0 Paroxysmal atrial fibrillation; D64.9 Anemia, unspecified
CPT/HCPCS: 36415; 71046; 74177; 80053; 80061; 80076; 80320; 82550; 82607; 82728; 82746; 83540; 83550; 83735; 85025; 85520; 85610; 85730; 86880; 93005; 93010; 93922; 93971; 94762; 96374; 96375-59; 97110; 97140; 97161; 97165; 97530; 97535; 99285-25; A9270; G0480; J0132; J1644; J1885; J2405; J2765; J3010; J7060; J7070; J7120; Q9967

== ENCOUNTER 2024-09-03 20:42 | Inpatient (IN) | payer OTHER ==
[~2024-09-03] VITALS: Ht 160 cm; Wt 81.7 kg
[~2024-09-03 20:42] MED LIST changes: +ELIQUIS5 M2 PO; +KETO10 PO; +PREG300 PO
[2024-09-03] MEDS ORDERED: LORazepam 2 MG/ML 1ML Injection IV ONE ×2 (21:20→21:45)
[2024-09-03 21:27] LABS: Hematocrit 29.3 % (37.0-53.0); Mean Corpuscular HGB 33.6 pg (26.0-34.0); Mean Corpuscular HGB Conc 34.1 g/dL (31.5-36.5); RDW Coefficient Variation 22.9 % (11.7-14.2); RDW Standard Deviation 80.8 fL (35.1-46.3); Red Blood Cell Count 2.98 M/mm3 (4.30-5.90)
[2024-09-03 21:32] LABS: Mean Corpuscular Volume 98 fL (80-100); NRBC ABSOLUTE 0.03 K/mm3 (0.00-0.02); NRBC Auto 0.2 /100 WBC (0.0-0.2); White Blood Cell Count 14.69 K/mm3 (4.00-11.30)
[2024-09-03 21:34] LABS: Albumin, Blood 2.6 g/dL (3.4-5.0); Albumin/Globulin Ratio 0.6 (0.8-1.8); Bilirubin, Total 0.6 mg/dL (0.1-1.0); Bun/Creatinine Ratio 12.9 (12.0-20.0); Calcium, Blood 9.2 mg/dL (8.5-10.1); Creatinine, Blood 0.93 mg/dL (0.60-1.20); Globulin, Blood 4.4 g/dL (2.2-4.0); Magnesium, Blood 2.4 mg/dL (1.6-2.4); Potassium, Blood 4.4 mmol/L (3.5-5.5)
[2024-09-03 21:52] LABS: BAND PERCENT MAN 4 % (0-8); BASOPHILS ABSOLUTE MAN 0.29 K/mm3 (0.00-0.23); BASOPHILS PERCENT MAN 2 % (0-2); EOSINOPHILS ABSOLUTE MAN 0.14 K/mm3 (0.00-0.68); EOSINOPHILS PERCENT MAN 1 % (0-6); LYMPHOCYTES % ATYPICAL MANUAL 2 % (0-0); LYMPHOCYTES ABSOLUTE MAN 4.55 K/mm3 (0.84-5.20); LYMPHOCYTES PERCENT MAN 29 % (21-46); MONOCYTES ABSOLUTE MAN 1.76 K/mm3 (0.16-1.47); MONOCYTES PERCENT MAN 12 % (4-13); NEUTROPHILS ABSOLUTE MAN 7.93 K/mm3 (1.96-9.15); SEG NEUTROPHILS PERCENT MAN 50 % (41-73); TOTAL CELLS COUNTED 100
[2024-09-03 21:54] LABS: Mean Platelet Volume 10.2 fL (9.1-12.4); Platelet Count 518 K/mm3 (150-400)
[2024-09-04] MEDS ORDERED: Dexamethasone Sod Phos 10 MG/ML 1ML VIAL IV ONE (00:10)
[2024-09-04] MEDS ORDERED: NS 1,000 ML IV ONE (00:30)
[2024-09-04] MEDS ORDERED: Ondansetron HCl 2 MG / ML 2ML Vial IV PRN (00:30)
[2024-09-04] MEDS ORDERED: FLU VACC TS2024-25(6MOS UP)/PF 45 MCG/0.5 ML SYRINGE IM ONE (00:35)
[2024-09-04 01:25] VITALS: BP 85/48
[2024-09-04] MEDS ORDERED: NS 1,000 ML IV SCH (03:10)
[2024-09-04 05:29] LABS: BASOPHILS ABSOLUTE AUTO 0.11 K/mm3 (0.00-0.23); BASOPHILS PERCENT AUTO 1 % (0-2); EOSINOPHILS ABSOLUTE AUTO 0.14 K/mm3 (0.00-0.68); EOSINOPHILS PERCENT AUTO 1 % (0-6); Hematocrit 31.3 % (37.0-53.0); Hemoglobin 10.2 g/dL (13.5-17.5); IMMATURE GRAN ABSOLUTE AUTO 0.42 K/mm3 (0.00-0.10); IMMATURE GRAN PERCENT AUTO 4 % (0-1); LYMPHOCYTES ABSOLUTE AUTO 0.98 K/mm3 (0.84-5.20); LYMPHOCYTES PERCENT AUTO 9 % (21-46); MONOCYTES ABSOLUTE AUTO 0.21 K/mm3 (0.16-1.47); MONOCYTES PERCENT AUTO 2 % (4-13); Mean Corpuscular HGB 33.2 pg (26.0-34.0); Mean Corpuscular HGB Conc 32.6 g/dL (31.5-36.5); Mean Corpuscular Volume 102 fL (80-100); Mean Platelet Volume 10.6 fL (9.1-12.4); NEUTROPHILS ABSOLUTE AUTO 8.87 K/mm3 (1.96-9.15); NEUTROPHILS PERCENT AUTO 83 % (41-73); Platelet Count 525 K/mm3 (150-400); RDW Coefficient Variation 23.2 % (11.7-14.2); RDW Standard Deviation 85.4 fL (35.1-46.3); Red Blood Cell Count 3.07 M/mm3 (4.30-5.90); White Blood Cell Count 10.73 K/mm3 (4.00-11.30)
[2024-09-04 05:50] LABS: Albumin, Blood 2.5 g/dL (3.4-5.0); Albumin/Globulin Ratio 0.6 (0.8-1.8); Bilirubin, Total 0.6 mg/dL (0.1-1.0); Bun/Creatinine Ratio 11.4 (12.0-20.0); Calcium, Blood 8.8 mg/dL (8.5-10.1); Creatinine, Blood 0.79 mg/dL (0.60-1.20); Globulin, Blood 4.5 g/dL (2.2-4.0); Potassium, Blood 4.9 mmol/L (3.5-5.5)
--- NOTE | 2024-09-04 06:14 | NUR ---
SHIFT SUMMARY: Pt is admitted for encephalopathy and is a full code. Has been sleeping since coming to the floor from the ED about 0130. ADLs have been 2p. No SX of pain noted. Telly reports sinus in the 60s with no events. Report from ED stated that PT can be combative at times have not noted any behaviors this shift due to restful nature.
[2024-09-04 07:40] VITALS: BP 90/52
[2024-09-04] MEDS ORDERED: Dexamethasone Sod Phos 10 MG/ML 1ML VIAL IV SCH (09:00)
[2024-09-04 11:12] LABS: Bicarbonate Venous 27.7 mmol/L (24.0-30.0); PCO2 Venous 41.4 mmHg (38-42); pH Blood Venous 7.44 (7.34-7.37)
[2024-09-04] MEDS ORDERED: Piperacillin/Tazobactam Sod 3.375 GM in NS 100 ML IV SCH (12:00)
[2024-09-04] MEDS ORDERED: LORazepam 2 MG/ML 1ML Injection IV PRN ×2 (12:50→17:45)
[2024-09-04 15:45] VITALS: BP 131/68
[2024-09-04] MEDS ORDERED: Lactated Ringer's 1,000 ML IV SCH (17:15)
--- NOTE | 2024-09-04 17:27 | NUR ---
INCREASED ALERTNESS AND ORIENTATION THIS EVENING, VERY STIFF EXTREMITIES, DR SHARMA ROUNDED, LR TO BE STARTED FOR ONE BAG, SPOKE WITH SISTER FOR MRI SHEET, WAITING FOR [facility] RECORDS TO MAKE SURE NO METAL, 93% ON 4L, BED ALARM ON, CALL LIGHT WITH IN REACH, WILL RELAY TO PM RN
[2024-09-04 20:07] VITALS: BP 120/67
[2024-09-04] MEDS ORDERED: LORazepam 2 MG/ML 1ML Injection IV ONE (23:05)
[2024-09-05 02:47] VITALS: BP 130/72
[2024-09-05 06:40] LABS: BASOPHILS ABSOLUTE AUTO 0.02 K/mm3 (0.00-0.23); BASOPHILS PERCENT AUTO 0 % (0-2); EOSINOPHILS PERCENT AUTO 0 % (0-6); Hemoglobin 8.7 g/dL (13.5-17.5); IMMATURE GRAN ABSOLUTE AUTO 0.18 K/mm3 (0.00-0.10); IMMATURE GRAN PERCENT AUTO 2 % (0-1); LYMPHOCYTES ABSOLUTE AUTO 1.49 K/mm3 (0.84-5.20); LYMPHOCYTES PERCENT AUTO 14 % (21-46); MONOCYTES ABSOLUTE AUTO 0.52 K/mm3 (0.16-1.47); MONOCYTES PERCENT AUTO 5 % (4-13); Mean Corpuscular HGB Conc 32.2 g/dL (31.5-36.5); Mean Corpuscular Volume 102 fL (80-100); Mean Platelet Volume 10.8 fL (9.1-12.4); NEUTROPHILS ABSOLUTE AUTO 8.16 K/mm3 (1.96-9.15); NEUTROPHILS PERCENT AUTO 79 % (41-73); Platelet Count 493 K/mm3 (150-400); RDW Standard Deviation 84.5 fL (35.1-46.3); Red Blood Cell Count 2.64 M/mm3 (4.30-5.90); White Blood Cell Count 10.37 K/mm3 (4.00-11.30)
--- NOTE | 2024-09-05 06:44 | NUR ---
[employer] REVENUE OFFICER SUMMARY PT HAS BEEN SOMNOLENT T/O THE NIGHT WIHT ONLY BRIEF PERIODS OF ALERTNESS. PT IS ORIENTED TO SELF. [facility]IN[facility]. PT HAS BEEN COOPERATIVE WITH CRARE. NO EPISODES OF AGRESSION. PT HAVING FREQUENT INVOLUNTARY MUSCLE TWITCHES AND SPASAMS. CALL TO HOSPITALIST. SOKE TO ZAYRA--HE SAID ATIVAN IS MOST HELPFUL FOR THE MUSCLE CRAMPING. NEW ORDER FOR ONETIME DOSE OF 1MG ATIVAN. WAIT 10 MINUTUES. IF NO RELIEF REPEAT MED AT SAME DOSE. IF NO RELIEF CALL BACK. PT IMPROVED WITH 0NE DOSE. PT HAS ATIVAN 0.5-1MG Q4 PRN. MED PER OCT. ALSO DISCUSSED PT NOT BEING ON BLOOD THINNER--NO CHANGE ORDER AT THIS TIME. PT HAS LARGE URINARY INCONT IN THE NIGHT. MONITORING PT FOR URINE RETENTION. BLADDER SCAN DONE TO MONITOR. BED ALARM IN PLACE. REGULAR ROUNING COMPLETE. CARE WILL CONTINUE UNTIL REPORT CAN BE GIVEN TO ONCOMING NURSE. CALL LIGHT ACCESSIBLE.
[2024-09-05 07:18] LABS: Albumin, Blood 2.2 g/dL (3.4-5.0); Albumin/Globulin Ratio 0.6 (0.8-1.8); Bilirubin, Total 0.5 mg/dL (0.1-1.0); Bun/Creatinine Ratio 14.5 (12.0-20.0); Calcium, Blood 8.5 mg/dL (8.5-10.1); Creatinine, Blood 0.83 mg/dL (0.60-1.20); Globulin, Blood 3.9 g/dL (2.2-4.0); Potassium, Blood 4.4 mmol/L (3.5-5.5); Total Protein, Blood 6.1 g/dL (6.4-8.2)
[2024-09-05 07:24] VITALS: BP 128/71
[2024-09-05] MEDS ORDERED: NS 250 ML IV PRN (11:55)
[2024-09-05 15:43] VITALS: BP 126/67
--- NOTE | 2024-09-05 16:36 | NUR ---
Pt was alert and conversational. Pt describes present feeling as "doing bad." Addressed support systems. Pt is concerned about belongings being scattered in various places including the [facility]. Pt is relying on sister for help in this matter. Addressed coping mechanisms. Pt seems to rely on perserverance during difficult times "I just get through it" Addressed pt's spiritual connection. Pt does not have spiritual inclinations but is not averse to it. Prayer offered. Pt was quickly receptive to prayer and grateful for the prayer and also thanked me for the visit.
--- NOTE | 2024-09-05 18:31 | NUR ---
SHIFT SUMMARY PT CONT LEVEL OF CARE. PT NOTED TO BE A&OX3 THIS SHIFT AND NOTED TO HAVE MAJOR IMPROVEMENTS WITH MENTATION AND ALERTNESS THEN REPORTED FROM PRIOR SHIFT. PT NOTED TO UTILIZE URINAL AT BEDSIDE. ST EVAL WAS COMPLETED AND PT NOTED TO BE ABLE TO HAVE A REGULAR DIET AND THIN LIQUIDS WITH ORAL MEDICATION WHOLE WITH WATER. PT WAS EXCITED TO BE ABLE TO EAT AND DRINK. PT NOTED TO HAVE MRI, BONE SCAN, FEMUR XRAY DONE THIS SHIFT AWAITING PHYSICIAN TO GO OVER TEST RESULTS WITH PT AND PT FAMILY. PT SISTER RENY CALLED AND STATED SHE WOULD BE IN TOMORROW SHE IS ALSO GOING TO GRAB SOME OF PT BELONGINGS FROM [employer] PER PT REQUEST.
[2024-09-05 20:42] VITALS: BP 129/64
[2024-09-05] MEDS ORDERED: OxyCODONE HCL 10 MG TABCR PO ONE (21:05)
[2024-09-05] MEDS ORDERED: Lidocaine 4% 1 Patch TOP ONE (21:05)
[2024-09-05] MEDS ORDERED: Baclofen 10 MG Tab PO ONE (21:05)
[2024-09-05] MEDS ORDERED: OxyCODONE HCL 5 MG TAB PO ONE (21:15)
--- NOTE | 2024-09-06 05:14 | NUR ---
SUPERVISOR VACUUM METALIZING SUMMARY PT A/OX3. PT MOVEMENTS REMAIN RIGID AND SPASTIC. PT IS ABLE TO STATE WHERE HE IS AND MAKE NEEDS KNOWN. PT HAS BEEN ON BEDREST T/O THE NIGHT. USING URINAL INDEPENDENTLY. PT REPORTS 5-7/10 PAIN IN THE RIGHT HIP THAT IS INCREASED DURING ACTIVITY/BRIEF CHANGES. SPOKE TO RESIDENT/DR PETTY ABOUT CONCERN FOR PT PAIN AND NOT PAIN MEDS. DISCUSSED PT'S HOME MEDS AND USE OF ORAL MUSCLE RELAXERS. NEW ORDER FOR ONE TIME DOSE OF 5MG OXCONTIN AND LIDOCANE PATCH. WAS GOING TO ALSO ORDER BACOLFEN BUT DECIDED AGIANST FOR CONCERN OF AFFECTING PT'S MENTATION. PT REPORTED LITTLE IMPROVEMENT TO PAIN IN RIGHT HIP AFTER THE MEDICATION BUT HAS BEEN RESTFUL T/O THE SHIFT. CALL LIGHT ACCESSIBLE. REGULAR INTERVAL ROUNDING COMPLETE. CARE WILL CONTINUE UNTIL REPORT IS GIVEN TO ONCOMING NURSE.
[2024-09-06 06:01] VITALS: BP 135/77
[2024-09-06 06:22] LABS: Hematocrit 29.4 % (37.0-53.0); Hemoglobin 9.4 g/dL (13.5-17.5); Mean Corpuscular HGB 32.6 pg (26.0-34.0); Mean Corpuscular Volume 102 fL (80-100); Mean Platelet Volume 10.6 fL (9.1-12.4); Platelet Count 525 K/mm3 (150-400); RDW Coefficient Variation 22.7 % (11.7-14.2); RDW Standard Deviation 83.5 fL (35.1-46.3); Red Blood Cell Count 2.88 M/mm3 (4.30-5.90)
[2024-09-06 06:28] LABS: BASOPHILS ABSOLUTE AUTO 0.01 K/mm3 (0.00-0.23); BASOPHILS PERCENT AUTO 0 % (0-2); EOSINOPHILS PERCENT AUTO 0 % (0-6); IMMATURE GRAN ABSOLUTE AUTO 0.28 K/mm3 (0.00-0.10); IMMATURE GRAN PERCENT AUTO 2 % (0-1); LYMPHOCYTES ABSOLUTE AUTO 1.82 K/mm3 (0.84-5.20); LYMPHOCYTES PERCENT AUTO 15 % (21-46); MONOCYTES ABSOLUTE AUTO 0.82 K/mm3 (0.16-1.47); MONOCYTES PERCENT AUTO 7 % (4-13); NEUTROPHILS ABSOLUTE AUTO 9.23 K/mm3 (1.96-9.15); NEUTROPHILS PERCENT AUTO 76 % (41-73); NRBC ABSOLUTE 0.02 K/mm3 (0.00-0.02); NRBC Auto 0.2 /100 WBC (0.0-0.2); White Blood Cell Count 12.16 K/mm3 (4.00-11.30)
[2024-09-06 06:52] LABS: Albumin, Blood 2.5 g/dL (3.4-5.0); Albumin/Globulin Ratio 0.6 (0.8-1.8); Bilirubin, Total 0.4 mg/dL (0.1-1.0); Bun/Creatinine Ratio 19.8 (12.0-20.0); Calcium, Blood 8.5 mg/dL (8.5-10.1); Creatinine, Blood 0.81 mg/dL (0.60-1.20); Potassium, Blood 4.1 mmol/L (3.5-5.5); Total Protein, Blood 6.5 g/dL (6.4-8.2)
[2024-09-06 07:11] LABS: BASOPHILS PERCENT MAN 0 % (0-2); EOSINOPHILS PERCENT MAN 0 % (0-6); LYMPHOCYTES % ATYPICAL MANUAL 4 % (0-0); LYMPHOCYTES ABSOLUTE MAN 2.67 K/mm3 (0.84-5.20); LYMPHOCYTES PERCENT MAN 18 % (21-46); MONOCYTES ABSOLUTE MAN 0.48 K/mm3 (0.16-1.47); MONOCYTES PERCENT MAN 4 % (4-13); NEUTROPHILS ABSOLUTE MAN 8.99 K/mm3 (1.96-9.15); SEG NEUTROPHILS PERCENT MAN 74 % (41-73); TOTAL CELLS COUNTED 100
[2024-09-06] MEDS ORDERED: OxyCODONE HCL 5 MG TAB PO PRN (07:35)
[2024-09-06 07:40] VITALS: BP 133/80
[2024-09-06] MEDS ORDERED: Lactulose 20 GM/30 ML UDC PO SCH (09:00)
[2024-09-06 15:02] VITALS: BP 132/69
[2024-09-06] MEDS ORDERED: Dexamethasone 2 MG Tab PO SCH (17:00)
--- NOTE | 2024-09-06 18:40 | NUR ---
SHIFT SUMMARY PT CONT LEVEL OF CARE WITH NO ACUTE CHANGES NOTED. PT CONT TO REMAIN A&OX4. PT NOTED TO WORK WITH THERAPY THIS SHIFT AND HAS BEEN CLEARED FOR ASSISTX2 TO BEDSIDE COMMODE AND UP TO CHAIR. PT NOTED TO STILL HAVE MUSCLE SPASMS WITH MOVEMENT AND SOME SLURRED SPEECH BUT NOTED TO BE IMPROVING FROM PREVIOUS. PHYSICIAN DISCUSSED IMAGING RESULTS WITH PT AND THE POSSIBLITY HE MAY HAVE CANCER PT WISHES TO CONT WITH FURTHER TX AT THIS TIME.
[2024-09-06 19:31] VITALS: BP 134/77
[2024-09-06] MEDS ORDERED: Apixaban 5 MG Tab PO SCH (21:00)
[2024-09-06] MEDS ORDERED: Amoxicillin/Clavulanate K 875 MG Tab PO SCH (21:00)
[2024-09-06] MEDS ORDERED: LevETIRAcetam 500 MG Tab PO SCH (21:00)
[2024-09-06] MEDS ORDERED: Morphine Sulfate 4 MG/1 ML Injection IV PRN (21:05)
[2024-09-06] MEDS ORDERED: Naloxone HCl 0.4MG / ML 1ML Vial IV PRN (21:05)
--- NOTE | 2024-09-06 21:57 | NUR ---
NURSE NOTE; PATIENT WAS STILL IN SEVERE PAIN AFTER ORAL PAIN MED. CALLED RESIDENT FOR SOMETING ELSE. ALSO ADDED HEATING PAD FOR COMFORT. PATIENT PAIN IS NOW A 5, HE FEELS SO MUCH BETTER.WILL STAY ON TOP OF PRN PAIN MED THRU THE NIGHT.
[2024-09-07 06:25] VITALS: BP 143/85
[2024-09-07 07:01] LABS: BASOPHILS ABSOLUTE AUTO 0.02 K/mm3 (0.00-0.23); BASOPHILS PERCENT AUTO 0 % (0-2); EOSINOPHILS PERCENT AUTO 0 % (0-6); Hematocrit 29.5 % (37.0-53.0); Hemoglobin 9.4 g/dL (13.5-17.5); IMMATURE GRAN ABSOLUTE AUTO 0.34 K/mm3 (0.00-0.10); IMMATURE GRAN PERCENT AUTO 2 % (0-1); LYMPHOCYTES ABSOLUTE AUTO 2.77 K/mm3 (0.84-5.20); LYMPHOCYTES PERCENT AUTO 17 % (21-46); MONOCYTES ABSOLUTE AUTO 1.84 K/mm3 (0.16-1.47); MONOCYTES PERCENT AUTO 11 % (4-13); Mean Corpuscular HGB 32.8 pg (26.0-34.0); Mean Corpuscular HGB Conc 31.9 g/dL (31.5-36.5); Mean Corpuscular Volume 103 fL (80-100); Mean Platelet Volume 11.1 fL (9.1-12.4); NEUTROPHILS ABSOLUTE AUTO 11.76 K/mm3 (1.96-9.15); NEUTROPHILS PERCENT AUTO 70 % (41-73); NRBC ABSOLUTE 0.03 K/mm3 (0.00-0.02); NRBC Auto 0.2 /100 WBC (0.0-0.2); Platelet Count 527 K/mm3 (150-400); RDW Coefficient Variation 22.5 % (11.7-14.2); RDW Standard Deviation 84.6 fL (35.1-46.3); Red Blood Cell Count 2.87 M/mm3 (4.30-5.90); White Blood Cell Count 16.73 K/mm3 (4.00-11.30)
[2024-09-07 07:28] LABS: Albumin, Blood 2.4 g/dL (3.4-5.0); Albumin/Globulin Ratio 0.6 (0.8-1.8); Bilirubin, Total 0.4 mg/dL (0.1-1.0); Calcium, Blood 8.4 mg/dL (8.5-10.1); Creatinine, Blood 0.84 mg/dL (0.60-1.20); Globulin, Blood 3.7 g/dL (2.2-4.0); Potassium, Blood 4.2 mmol/L (3.5-5.5); Total Protein, Blood 6.1 g/dL (6.4-8.2)
[2024-09-07 07:39] VITALS: BP 132/81
--- NOTE | 2024-09-07 08:14 | NUR ---
SHIFT SUMMARY; PATIENT SLEPT IN LONG INTERVAL AFTER IV PAIN MED, FOLLOWED BY ATIVAN. TELE SR 74 WITH BBB.
[2024-09-07] MEDS ORDERED: AmLODIPine Besylate 5 MG Tab PO SCH (09:00)
[2024-09-07] MEDS ORDERED: Atorvastatin 10 MG Tab PO SCH (09:00)
[2024-09-07 15:31] VITALS: BP 125/73
[2024-09-07] MEDS ORDERED: Lidocaine 4% 1 Patch TOP ONE (16:20)
--- NOTE | 2024-09-07 17:43 | NUR ---
SHIFT SUMMARY PT CONT LEVEL OF CARE WITH NO ACUTE CHANGES NOTED. PT CONT TO VOICE C/O PAIN WITH IT MAINLY BEING IN HIS R UPPER LEG. PT HAS BEEN MEDICATED PER EMAR AND HAS RECIEVED A NEW ORDER FOR A LIDOCAINE PATCH. PLAN IS AWAITING SNF PLACEMENT.
[2024-09-07 20:05] VITALS: BP 133/77
[2024-09-08 02:50] VITALS: BP 144/80
--- NOTE | 2024-09-08 04:51 | NUR ---
SHIFT SUMMARY: PT AOX4 PT TIRED AND SPEAKING SLOWED BUT PASSABLE. COMPLAINTS OF PAIN MEDICATED PER EMR. WAS ABLE TO GET SOME SLEEP. REFUSED SCD'S. IND WITH THE URINAL CALLS APPROPRIATELY AND IS ABLE TO MAKE NEEDS KNOWN. NO ACUTE EVENTS OVERNIGHT. PT RESTING IN BED, BED IN LOWEST POSITION, CALL LIGHT IN REACH. CONTINUING CARE.
[2024-09-08 07:27] LABS: Hematocrit 32.4 % (37.0-53.0); Hemoglobin 10.4 g/dL (13.5-17.5); Mean Corpuscular HGB 32.6 pg (26.0-34.0); Mean Corpuscular HGB Conc 32.1 g/dL (31.5-36.5); Mean Corpuscular Volume 102 fL (80-100); Mean Platelet Volume 10.7 fL (9.1-12.4); Platelet Count 555 K/mm3 (150-400); RDW Coefficient Variation 21.9 % (11.7-14.2); RDW Standard Deviation 79.7 fL (35.1-46.3); Red Blood Cell Count 3.19 M/mm3 (4.30-5.90)
[2024-09-08 07:38] LABS: BASOPHILS ABSOLUTE AUTO 0.04 K/mm3 (0.00-0.23); BASOPHILS PERCENT AUTO 0 % (0-2); EOSINOPHILS ABSOLUTE AUTO 0.02 K/mm3 (0.00-0.68); EOSINOPHILS PERCENT AUTO 0 % (0-6); IMMATURE GRAN ABSOLUTE AUTO 0.85 K/mm3 (0.00-0.10); IMMATURE GRAN PERCENT AUTO 5 % (0-1); LYMPHOCYTES ABSOLUTE AUTO 2.92 K/mm3 (0.84-5.20); LYMPHOCYTES PERCENT AUTO 16 % (21-46); MONOCYTES PERCENT AUTO 8 % (4-13); NEUTROPHILS ABSOLUTE AUTO 12.73 K/mm3 (1.96-9.15); NEUTROPHILS PERCENT AUTO 71 % (41-73); NRBC ABSOLUTE 0.07 K/mm3 (0.00-0.02); NRBC Auto 0.4 /100 WBC (0.0-0.2); White Blood Cell Count 17.96 K/mm3 (4.00-11.30)
[2024-09-08 07:44] LABS: Albumin, Blood 2.6 g/dL (3.4-5.0); Albumin/Globulin Ratio 0.6 (0.8-1.8); Bilirubin, Total 0.5 mg/dL (0.1-1.0); Bun/Creatinine Ratio 19.4 (12.0-20.0); Calcium, Blood 8.5 mg/dL (8.5-10.1); Creatinine, Blood 0.72 mg/dL (0.60-1.20); Potassium, Blood 4.1 mmol/L (3.5-5.5); Total Protein, Blood 6.6 g/dL (6.4-8.2)
[2024-09-08] MEDS ORDERED: OxyCODONE HCL 5 MG TAB PO PRN (09:05)
[2024-09-08] MEDS ORDERED: Lidocaine 4% 1 Patch TOP SCH (12:00)
[2024-09-08 15:14] VITALS: BP 121/73
--- NOTE | 2024-09-08 17:17 | NUR ---
GOALS OF CARE, SUPPORTIVE VISIT JOINT VISIT WITH PROVIDER, THIS PC RN AND PT. "MELO" IS A/O X4. HE IS PLEASANT AND JOVIAL. HE IS ABLE TO MAKE NEEDS KNOWN. PROVIDER REVIEWED MELO'S GRIM PROGNOSIS WITH HIM, WELL POSSIBLE TREATMENTS AND ADDITIONAL TESTING. MELO STATED, "I DIDN'T THINK I WOULD LIVE TO SEE 50. I WANT TO BE COMFORTABLE FOR THE REST OF MY TIME." HE DENIES WANTING TO PURSUE TX AND WANTS TO GO HOME WITH HOSPICE CARE. MELO LIVES ALONE. PRIMARY NURSE REPORTS PT REQUIRES ASSITANCE FOR OOB. PHYSICAL THERAPIST REPORTS PT BEING, "HIGH RISK FOR PATHOLOGICAL FRACTURE R THIGH." NOT A SNF CANDIDATE AT THIS TIME. THIS PC RN AND PROVIDER UPDATED CM ON BARRIERS TO D/C HOME. THIS PC RN PLACED CALL TO [facility] RESPIRATORY CARE TECHNICIAN FOR UPDATE. CM TO SEND CONSULT PACKET TO [facility]. PC TO REMAIN AVAILABLE NEEDED.
--- NOTE | 2024-09-08 17:50 | NUR ---
SHIFT SUMMARY PT NOTED TO BE A&OX4 AND ASSIST X2. PT NOTED TO STILL BE VERY WEAK WITH UNSTEADY GAIT. PT/OT NOTED TO NOT WORK WITH PT THIS SHIFT D/T POSSIBILITY OF FEMUR FX. PT HAD PALLATIVE CARE CONSULT THIS SHIFT. PT NOTED TO CHOOSE TO GO WITH HOSPICE THIS SHIFT VS FURTHERING TX. DNR BRACELET PLACED TO R WRIST. SISTER CALLED AND RECEIVED UPDATES THIS SHIFT AND STATED WOULD POSSIBLE BE IN TOMORROW TO TALK WITH PHYSICIANS AND CASE MANAGEMENT. SISTER NOTED TO BE UPSET ABOUT PT CHOOSING TO GO ON HOSPICE. PT STILL VOICES C/O PAIN WITH HIS MAIN FOCUS OF PAIN BEING IN HIS RIGHT FEMUR. PHYSICIAN NOTIFIED AND INCREASED PT OXYCODONE TO 10MG PRN Q6HR.
[2024-09-08 19:21] VITALS: BP 123/63
[2024-09-09 03:21] VITALS: BP 116/66
--- NOTE | 2024-09-09 04:21 | NUR ---
SHIFT SUMMARY: PT AOX4 SPEECH SLOW BUT LEGIBLE. PAIN MEDICATED PER EMR. NO ACUTE EVENTS OVERNIGHT. PT SLEPT WELL. BED IN LOWEST POSITION, CALL LIGHT IN REACH, RESTING IN BED. CONTINUING CARE.
[2024-09-09 07:09] VITALS: BP 137/83
--- NOTE | 2024-09-09 10:58 | NUR ---
Spiritual Care Visit. Pt. is awake in bed and welcomes my visit. Pt. is pleasant. Facilitated a life review and listened with empathy and interest. Pt. verbalizes that he anticipates that he will be going home on hospice. Pt. displays evidence of being unsettled about the location of his hospice care, and verbalized his preference to go home to his Aparrt[facility] at [facility]. Established a measure of rapport. Considered matters of [place], and his service. Prayed with the Pt.
--- NOTE | 2024-09-09 11:35 | NUR ---
OT IN WORKING WITH PATIENT, DR ARGUELLES ROUNDED ON PATIENT NO CHANGES IN CARE
[2024-09-09 15:53] VITALS: BP 135/74
--- NOTE | 2024-09-09 16:58 | NUR ---
NO ACUTE CHANGES, TO BE DISCAHRGED ON HOSPICE TO HOME, POSSIBLY TOMORROW, ALERT AND ORIENTED, STUTTERED SPEECH, PLEASANT TO CARE, MEDICATED WITH PRN OXY, TELE OFF, CALL LIGHT WITH IN REACH, WILL RELAY TO PM RN
[2024-09-09 19:09] VITALS: BP 128/70
--- NOTE | 2024-09-10 02:24 | NUR ---
AAOX3, pleasant and cooperativ with cares. RA. Uses urinal at HS and BSC during day with assist x 1-2. Oxy for pain. #20 RAC, SL. Plan is to go home on Hospice, [place]. Pt reports his family will help as well as his neighbors.
[2024-09-10 03:29] VITALS: BP 127/71
[2024-09-10 07:06] VITALS: BP 133/76
[2024-09-10] MEDS ORDERED: DEXA2 PO (11:46)
[2024-09-10] MEDS ORDERED: LEVE500 PO (11:47)
[2024-09-10] MEDS ORDERED: PAIN RELIEF PA1 EACH TOP (11:47)
[2024-09-10] MEDS ORDERED: OXYC10TA19 PO (11:48)
--- NOTE | 2024-09-10 12:13 | NUR ---
Spiritual Care Visit. Pt. is awake in bed and welcomed my visit. Pt. verbalized his anctipated discharge home on hospice later this afternnon. Prayed with Pt. Pt. verbalized gratitude for the spiritual care visit.
--- NOTE | 2024-09-10 15:40 | NUR ---
PATIENT D/C'D TO HOME WITH [facility]. DC INSTRUCTIONS AND EDUCATION DISCUSSED WITH PATIENT AND COPY PROVIDED. HARD SCRIPT FOR OXYCODONE SENT HOME WITH PACKET. PATIENT DENIES ANY FURTHER QUESTIONS OR CONCERNS.
== END 2024-09-10 15:34 | disposition hospice, home (50) | DRG 70 ==
LOC: ER 20:42 → ERHOLD 09-04 00:29 → MEDS 09-04 00:29 → ER 09-04 01:24 → MEDS 09-09 10:32 → ENPENDDIS 09-10 11:49 → MEDS 09-10 15:34
PROVIDERS: Student in an Organized Health Care Education/Training Program; ADMIT Internal Medicine
DX: G93.89 Other specified disorders of brain (principal); G93.6 Cerebral edema; I74.5 Embolism and thrombosis of iliac artery; C79.51 Secondary malignant neoplasm of bone; C78.01 Secondary malignant neoplasm of right lung; G92.8 Other toxic encephalopathy; Z66 Do not resuscitate; G20.A1 Parkinson's disease without dyskinesia, without mention of fluctuations; I10 Essential (primary) hypertension; F41.9 Anxiety disorder, unspecified; E78.5 Hyperlipidemia, unspecified; I48.0 Paroxysmal atrial fibrillation; D64.9 Anemia, unspecified; M54.10 Radiculopathy, site unspecified; Z87.11 Personal history of peptic ulcer disease; Z79.899 Other long term (current) drug therapy; Z79.01 Long term (current) use of anticoagulants
CPT/HCPCS: 36415; 70450; 70496; 70498; 70553; 71045; 71260; 73552; 76705; 78306; 80053; 82140; 82550; 82803; 83735; 83880; 84443; 84484; 85025; 85651; 86141; 92610; 93005; 93010; 96374-59; 97161; 97165; 97530; 97535; 99285-25; A9270; A9503; A9579; J1100; J2060; J2270; J2543; J7030; J7050; J7120; Q9967

== ENCOUNTER 2024-10-13 11:41 | Inpatient (IN) | payer OTHER ==
[~2024-10-13] VITALS: Ht 172.7 cm; Wt 74.9 kg
[~2024-10-13 11:41] MED LIST changes: +DEXA2 PO; +LEVE500 PO; +OXYC10TA19 PO; +PAIN RELIEF PA1 EACH TOP
[2024-10-13] MEDS ORDERED: HYDROmorphone HCl/Pf 1MG SYR IV ONE (11:55)
[2024-10-13] MEDS ORDERED: Ondansetron HCl 2 MG / ML 2ML Vial IV ONE (11:55)
[2024-10-13] MEDS ORDERED: PREG100 PO (12:22)
[2024-10-13] MEDS ORDERED: LORA1 PO (12:23)
[2024-10-13] MEDS ORDERED: MORP20L PO (12:24)
[2024-10-13] MEDS ORDERED: ONDA4ODT MM (12:24)
[2024-10-13] MEDS ORDERED: ACET325 PO (13:02)
[2024-10-13] MEDS ORDERED: SENN187 PO (13:04)
[2024-10-13] MEDS ORDERED: BISA10S PR (13:04)
[2024-10-13 13:21] LABS: BASOPHILS ABSOLUTE AUTO 0.19 K/mm3 (0.00-0.23); BASOPHILS PERCENT AUTO 1 % (0-2); EOSINOPHILS ABSOLUTE AUTO 0.03 K/mm3 (0.00-0.68); EOSINOPHILS PERCENT AUTO 0 % (0-6); Hematocrit 38.4 % (37.0-53.0); Hemoglobin 12.5 g/dL (13.5-17.5); IMMATURE GRAN ABSOLUTE AUTO 1.86 K/mm3 (0.00-0.10); IMMATURE GRAN PERCENT AUTO 9 % (0-1); LYMPHOCYTES ABSOLUTE AUTO 1.54 K/mm3 (0.84-5.20); LYMPHOCYTES PERCENT AUTO 7 % (21-46); MONOCYTES ABSOLUTE AUTO 0.97 K/mm3 (0.16-1.47); MONOCYTES PERCENT AUTO 4 % (4-13); Mean Corpuscular HGB 32.6 pg (26.0-34.0); Mean Corpuscular HGB Conc 32.6 g/dL (31.5-36.5); Mean Corpuscular Volume 100 fL (80-100); Mean Platelet Volume 10.7 fL (9.1-12.4); NEUTROPHILS ABSOLUTE AUTO 17.28 K/mm3 (1.96-9.15); NEUTROPHILS PERCENT AUTO 79 % (41-73); NRBC ABSOLUTE 0.03 K/mm3 (0.00-0.02); NRBC Auto 0.1 /100 WBC (0.0-0.2); Platelet Count 232 K/mm3 (150-400); RDW Coefficient Variation 17.7 % (11.7-14.2); RDW Standard Deviation 66.4 fL (35.1-46.3); Red Blood Cell Count 3.84 M/mm3 (4.30-5.90); White Blood Cell Count 21.87 K/mm3 (4.00-11.30)
[2024-10-13 13:50] LABS: Bun/Creatinine Ratio 31.8 (12.0-20.0); Calcium, Blood 8.3 mg/dL (8.5-10.1); Creatinine, Blood 0.85 mg/dL (0.60-1.20); Potassium, Blood 3.8 mmol/L (3.5-5.5)
[2024-10-13] MEDS ORDERED: propofoL 0 ML IV ONE (14:51)
[2024-10-13] MEDS ORDERED: Bupivacaine 0.5% Inj 10 ML Vial ONE (14:51)
[2024-10-13] MEDS ORDERED: Magnesium Hydroxide Conc 10 ML UDC PO PRN (14:55)
[2024-10-13] MEDS ORDERED: FLU VACC TS2024-25(6MOS UP)/PF 45 MCG/0.5 ML SYRINGE IM PRN (14:55)
[2024-10-13] MEDS ORDERED: FentaNYL Citrate 50 MCG/ML 2 ML Injection IV PRN (14:55)
[2024-10-13] MEDS ORDERED: Ondansetron HCl 2 MG / ML 2ML Vial ONE (14:59)
[2024-10-13] MEDS ORDERED: HYDROmorphone HCl 0.5 MG/0.5 ML SYR ONE (14:59)
[2024-10-13] MEDS ORDERED: Dexamethasone Sod Phos 10 MG/ML 1ML VIAL ONE (14:59)
[2024-10-13] MEDS ORDERED: Acetaminophen 325 MG TABLET PO PRN (15:00)
[2024-10-13] MEDS ORDERED: Bisacodyl 10 MG Supp PR PRN (15:00)
[2024-10-13] MEDS ORDERED: Ondansetron 4 MG SoluTab MM PRN (15:00)
[2024-10-13] MEDS ORDERED: Morphine Sulfate 20 MG/1ML 1 ML Oral Syringe PO PRN (15:05)
[2024-10-13] MEDS ORDERED: Sennosides 8.6 MG Tab PO PRN (15:05)
[2024-10-13] MEDS ORDERED: LORazepam 1 MG Tab PO PRN (15:05)
[2024-10-13 15:07] VITALS: BP 134/81
[2024-10-13] MEDS ORDERED: Lactated Ringer's 1,000 ML IV SCH (15:10)
--- NOTE | 2024-10-13 15:17 | NUR ---
PT HAS 20G IV IN R AC THAT FLOWS WELL TO GRAVITY, SHOWS NO SIGNS OF INFILTRATION. NEAR THE IV INSERTION SITE THERE APPEARS TO BE SOME REDNESS OF A LESION NEXT TO IV START SITE, NOT BECAUSE OF ACTUAL IV.
[2024-10-13 16:01] VITALS: BP 135/77
--- NOTE | 2024-10-13 16:22 | NUR ---
ARRIVAL TO UNIT PATIENT TRANSFERRED TO UNIT FROM DAY SURGERY PROCEDURE HELD UNTIL TOMORROW PER MD FLETCHER. PATIENT LETHARGIC - EASILY AROUSABLE WITH VERBAL STIMULI. ALERT AND ORIENTED X3-4. SOFT, MUMBLED SPEECH - DIFFICULTY COMMUNICATING NEEDS AT TIMES. DIFFICULTY OBTAINING MEDICAL HX - INFORMATION GATHERED FROM PREVIOUS ADMISSIONS, MEDICAL RECORD. VSS. ON 2L VIA NC, SATs >90%. DENIES BASELINE OXYGEN USE. LUNG SOUNDS CORSE T/O. OCCASIONAL PRODUCTIVE COUGH. +3 PITTING EDEMA TO LLE - PP FAINT THREADY. R FEMORAL FX - NPO AT MIDNIGHT FOR REPAIR TOMORROW. EXTREMITY IN KERLEX AND ACEWRAP DRESSING. BUCKS TRACTION PER ORDER. SMALL BLISTERS TO BOTTOM OF L FOOT, SMALL SORE TO COCCYX - WOUND DRY, APPEARS TO BE HEALING WELL. MALE PW IN PLACE FOR URINARY MANAGEMENT. CALL LIGHT IN REACH.
[2024-10-13] MEDS ORDERED: Dexamethasone 2 MG Tab PO SCH (17:00)
[2024-10-13] MEDS ORDERED: CeFAZolin Sodium 2,000 MG in NS 100 ML IV SCH (17:00)
[2024-10-13 19:40] VITALS: BP 113/80
[2024-10-13] MEDS ORDERED: Mirtazapine 15 MG Tab PO SCH (21:00)
[2024-10-13] MEDS ORDERED: LevETIRAcetam 500 MG Tab PO SCH (21:00)
[2024-10-13] MEDS ORDERED: QUEtiapine Fumarate 25 MG Tab PO SCH (21:00)
[2024-10-13] MEDS ORDERED: Pregabalin 50 MG Capsule PO SCH (21:00)
[2024-10-14] VITALS (14 sets, daily range): BP systolic 98–127; BP diastolic 57–101
[2024-10-14] MEDS ORDERED: Lactated Ringer's 1,000 ML IV ONE ×2 (00:05→00:20)
--- NOTE | 2024-10-14 05:35 | NUR ---
SHIFT SUMMARY VSS. PT SLEPT ON AND OFF T/O THE NIGHT. RLE REMAINS EXTERNALLY ROTATED AND IN BUCKS TRACTION. PT CAN MOVE FOOT ON COMMAND, CAP REFILL SLUGGISH. EXTREMITY REMAINS WARM TO THE TOUCH. +3 EDEMA IN BLE. PT HAS BEEN NPO SINCE 0000 IN ANTICIPATION FOR SURGERY TODAY, SURGICAL WIPEDOWN COMPLETE. IVF INFUSING PER EMAR. PT MEDICATED FOR PAIN 10 MG ROXANOL W/ GOOD RESULTS. RECIEVED ORDER FOR A MORLEY, THE PATIENT WAS BLADDER SCANNED FOR 648. THE PATIENT ENDED UP VOIDING 650MLS, SO THE MORLEY WAS NOT PLACED. OVERALL, NO ACUTE EVENTS NOTED. PLAN FOR POSSIBLE SURGERY TODAY.
[2024-10-14] MEDS ORDERED: Tranexamic Acid 100 ML IV SCH (07:45)
[2024-10-14] MEDS ORDERED: CeFAZolin Sodium 2,000 MG in NS 100 ML IV SCH ×2 (07:45→21:00)
[2024-10-14] MEDS ORDERED: Vancomycin HCL 1,000 MG in NS 250 ML IV SCH (07:50)
[2024-10-14 08:26] LABS: Hematocrit 35.8 % (37.0-53.0); Hemoglobin 11.5 g/dL (13.5-17.5); Mean Corpuscular HGB 32.6 pg (26.0-34.0); Mean Corpuscular HGB Conc 32.1 g/dL (31.5-36.5); Mean Corpuscular Volume 101 fL (80-100); Mean Platelet Volume 10.8 fL (9.1-12.4); Platelet Count 214 K/mm3 (150-400); RDW Standard Deviation 67.4 fL (35.1-46.3); Red Blood Cell Count 3.53 M/mm3 (4.30-5.90); White Blood Cell Count 18.76 K/mm3 (4.00-11.30)
[2024-10-14 08:50] LABS: BAND PERCENT MAN 1 % (0-8); BASOPHILS PERCENT MAN 0 % (0-2); EOSINOPHILS PERCENT MAN 0 % (0-6); LYMPHOCYTES ABSOLUTE MAN 1.31 K/mm3 (0.84-5.20); LYMPHOCYTES PERCENT MAN 7 % (21-46); METAMYELOCYTE ABSOLUTE MAN 0.18 K/mm3 (0.00-0.00); METAMYELOCYTE PERCENT MAN 1 % (0-0); MONOCYTES ABSOLUTE MAN 0.56 K/mm3 (0.16-1.47); MONOCYTES PERCENT MAN 3 % (4-13); MYELOCYTE ABSOLUTE MAN 0.18 K/mm3 (0.00-0.00); MYELOCYTE PERCENT MAN 1 % (0-0); NEUTROPHILS ABSOLUTE MAN 16.32 K/mm3 (1.96-9.15); PROMYELOCYTE ABSOLUTE MAN 0.18 K/mm3 (0.00-0.00); PROMYELOCYTE PERCENT MAN 1 % (0-0); SEG NEUTROPHILS PERCENT MAN 86 % (41-73); TOTAL CELLS COUNTED 100
[2024-10-14] MEDS ORDERED: Lidocaine 4% 1 Patch TOP SCH (09:00)
[2024-10-14] MEDS ORDERED: Sertraline HCl 50 MG Tab PO SCH (09:00)
[2024-10-14] MEDS ORDERED: AmLODIPine Besylate 5 MG Tab PO SCH (09:00)
[2024-10-14] MEDS ORDERED: Bupivacaine 0.5% Inj 10 ML Vial ONE (11:32)
[2024-10-14] MEDS ORDERED: propofoL 100 ML IV ONE (11:32)
[2024-10-14] MEDS ORDERED: Ondansetron HCl 2 MG / ML 2ML Vial ONE (11:39)
[2024-10-14] MEDS ORDERED: Lactated Ringer's 1,000 ML IV SCH (11:50)
--- NOTE | 2024-10-14 11:51 | NUR ---
TO DAY SURGERY VIA HOSPITAL BED
--- NOTE | 2024-10-14 11:55 | NUR ---
History, Chart, Medications and Allergies reviewed before start of procedure. LUNGS WITH EXP CRACKLES T/O. Patient confirms NPO status and agrees with scheduled surgery. Pre-Op teaching done. Pt verbalizes understanding. ANESTHESIA SPOKE WITH PATIENTS SISTER FOR CONSENT.
[2024-10-14] MEDS ORDERED: FentaNYL Citrate 50 MCG/ML 2 ML Injection ONE (12:28)
[2024-10-14] MEDS ORDERED: Phenylephrine HCl 100 MCG/ML-NS 10MLSYR (1MG/10ML) ONE (12:39)
[2024-10-14] MEDS ORDERED: Metoclopramide HCl 5MG / ML 2ML Vial ONE (13:17)
--- NOTE | 2024-10-14 13:20 | NUR ---
10/14/24 1320 Ross Brown PATIENT PRESENTED TO THE OR WITH A PRESSURE WOUND ON THE BUTTOCKS, EVEDENT EDEMA ON BILATERAL LEGS WITH WEEPING BLISTERS CIRCUMFRINTIALLY. PITING EDEMA ON RIGHT DISTAL LEG. OPTIFOAM DRESSING WAS PLACED ON THE BUTTOCK WOUND. ALL OF THESE FINDINGS WERE SHOWN TO DR. FLETCHER AND DR. CRYSTAL RILEY RN
[2024-10-14] MEDS ORDERED: Dexamethasone Sod Phos 10 MG/ML 1ML VIAL ONE (13:41)
[2024-10-14] MEDS ORDERED: OxyCODONE HCL 5 MG TAB PO PRN (14:40)
[2024-10-14] MEDS ORDERED: Magnesium Hydroxide Conc 10 ML UDC PO PRN (14:45)
[2024-10-14] MEDS ORDERED: FLU VACC TS2024-25(6MOS UP)/PF 45 MCG/0.5 ML SYRINGE IM ONE (14:45)
[2024-10-14] MEDS ORDERED: Bisacodyl 10 MG Supp PR PRN (14:45)
[2024-10-14] MEDS ORDERED: HYDROmorphone HCl 0.5 MG/0.5 ML SYR IV PRN (14:45)
[2024-10-14] MEDS ORDERED: Acetaminophen 325 MG TABLET PO PRN (14:45)
[2024-10-14] MEDS ORDERED: NS 1,000 ML IV SCH (14:50)
[2024-10-14] MEDS ORDERED: Ketorolac Tromethamine 15mg Vial IV PRN (14:55)
--- NOTE | 2024-10-14 16:25 | NUR ---
POST OP RETURN TO SURGICAL UNIT VIA HOSPITAL BED, ALERT, ORIENTED, & PLEASANT. DENIES PAIN & CAN'T WIGGLE TOES R/T SPINAL. LUNGS COURSE/DIM IN BASES. RLE w/ BULKY GAUZE/TAPE DRSGS x 3: 1 TO POSTERIOR HIP, THIGH, & KNEE. NO DRNG NOTED. R FOOT/ANKLE/LOWER THIGH IN AKIRA WRAP. BLE SWELLING, UNCHANGED. MEPILEX TO L HEEL. DENIES N/V. DRINKS GIVEN.
[2024-10-14] MEDS ORDERED: Docusate Sodium 100 MG Cap PO SCH (21:00)
[2024-10-15] MEDS ORDERED: Vancomycin HCL 1,000 MG in NS 250 ML IV ONE
[2024-10-15 01:20] VITALS: BP 130/59
--- NOTE | 2024-10-15 03:59 | NUR ---
NOC SUMMARY- PT REMAINS ON O2 VIA NC. PT SPO2 >90%. PT PAIN HAS BEEN MANAGED WELL. PT REPOSITIONED TOLERATED. PT ABLE TO VOID VIA URINAL. PT BRIEF CHANGED NEEDED. PT DRESSING REMAIN C/D/I. PT ABLE TO MAKE NEEDS KNOWN. CALL LIGHT IN REACH.
[2024-10-15 04:37] VITALS: BP 110/70
[2024-10-15 04:41] LABS: Hematocrit 33.3 % (37.0-53.0); Hemoglobin 10.8 g/dL (13.5-17.5); Mean Corpuscular HGB 32.7 pg (26.0-34.0); Mean Corpuscular HGB Conc 32.4 g/dL (31.5-36.5); Mean Corpuscular Volume 101 fL (80-100); Mean Platelet Volume 11.3 fL (9.1-12.4); Platelet Count 201 K/mm3 (150-400); RDW Coefficient Variation 17.4 % (11.7-14.2); RDW Standard Deviation 64.9 fL (35.1-46.3); White Blood Cell Count 16.86 K/mm3 (4.00-11.30)
[2024-10-15 04:59] LABS: Bun/Creatinine Ratio 32.7 (12.0-20.0); Calcium, Blood 7.9 mg/dL (8.5-10.1); Creatinine, Blood 0.55 mg/dL (0.60-1.20); Magnesium, Blood 2.1 mg/dL (1.6-2.4); Potassium, Blood 4.4 mmol/L (3.5-5.5)
[2024-10-15 05:29] LABS: BAND PERCENT MAN 3 % (0-8); BASOPHILS PERCENT MAN 0 % (0-2); EOSINOPHILS PERCENT MAN 0 % (0-6); LYMPHOCYTES ABSOLUTE MAN 1.34 K/mm3 (0.84-5.20); LYMPHOCYTES PERCENT MAN 8 % (21-46); METAMYELOCYTE ABSOLUTE MAN 0.33 K/mm3 (0.00-0.00); METAMYELOCYTE PERCENT MAN 2 % (0-0); MONOCYTES ABSOLUTE MAN 0.33 K/mm3 (0.16-1.47); MONOCYTES PERCENT MAN 2 % (4-13); MYELOCYTE PERCENT MAN 3 % (0-0); NEUTROPHILS ABSOLUTE MAN 14.33 K/mm3 (1.96-9.15); SEG NEUTROPHILS PERCENT MAN 82 % (41-73); TOTAL CELLS COUNTED 100
[2024-10-15 07:13] VITALS: BP 108/64
--- NOTE | 2024-10-15 16:06 | NUR ---
SHIFT SUMMARY PT HAS REMAINED IN BED T/O SHIFT. WORKED w/ THERAPY BUT ONLY BED EXERCISES. MADE GOAL OF SITTING ON SIDE OF BED TOMORROW. PAIN MANAGED w/ ROXANOL & TYLENOL. SURG DRSGS CHANGED TO AQUACEL BY SURGEON. PLEASANT & CONTENT.
--- NOTE | 2024-10-15 17:06 | NUR ---
REPORT RECEIVED FROM EROS SHEPHERD. ASSUMED PT CARE AT 1631
--- NOTE | 2024-10-15 17:06 | NUR ---
ASSUMED CARE @1700, CALL LIGHT IN REACH, NOTED LEFT FOOT ULCER, PICTURE IN CHART.
[2024-10-15 17:13] VITALS: BP 125/68
[2024-10-15] MEDS ORDERED: Enoxaparin 40 MG/0.4 ML SYR SC SCH (19:00)
[2024-10-15 19:37] VITALS: BP 126/70
--- NOTE | 2024-10-16 04:59 | NUR ---
SHIFT SUMMARY URIEL WAS ALERT AND FULLY ORIENTED ON ASSESMENT. PT ON 2L O2 VIA NC SATTING >90. DRESSINGS C/D/I, ABLE TO WIGGLE TOES, DISTAL SENSATION AND CIRCULATION INTACT TO EXTREMETIES. GENERALIZED EDEMA NOTED TO R THIGH. VOIDING APPROPRIATELY. PT ASKED TO NOT BE WOKE UP FOR CHECKINS TONIGHT. NO ACUTE EVENTS, NO NOTED CHANGES TO CONDITION.
[2024-10-16 05:30] VITALS: BP 123/68
[2024-10-16 07:18] VITALS: BP 125/71
[2024-10-16 15:46] VITALS: BP 123/64
--- NOTE | 2024-10-16 18:45 | NUR ---
SHIFT SUMMARY PT IS A/O X4, POD3 R HIP NAILING. DRESSINGS TO R LEG C/D/I, AKIRA WRAP IN PLACE TO RLE. CAP REFILL <2 SECS, PT ABLE TO WIGGLE TOES BILATERALLY. TOLERATING PO FLUIDS, VOIDING, BM TODAY. MEPILEX TO L FOOT CHANGED. PAIN MEDS GIVEN PER EMAR, PT RESTING PEACEFULLY. VSS. PT REQUIRING 2-3.5L NC TO MAINTAIN SATS >90%, CONT BIOX IN PLACE, PT DENIES SOB. POSSIBLE DISCHARGE HOME W/ HOSPICE TOMORROW. CALL LIGHT IN REACH.
[2024-10-16 19:49] VITALS: BP 115/64
[2024-10-17 04:47] VITALS: BP 116/96
[2024-10-17 07:16] VITALS: BP 122/67
--- NOTE | 2024-10-17 07:30 | NUR ---
SHIFT SUMMARY S/P RIGHT HIP HIP NAILING, AQUACEL DRESSINGS 3X TO HIP CDI. PAIN MANAGED PER EMAR; PRN ATIVAN AND ROXANOL STARTED TONIGHT. NO ACUTE CHANGES T/O SHIFT. PT UP IN CHAIR AT START OF SHIFT, REQUIRED 3MAX ASSIST TO RETURN TO BED DUE TO WEAKNESS. LEGS CONTINUE TO HAVE 3+ WHEEPING EDEMA. BORDERED FOAM APPLIED TO COCCYX, MULTIPLE DRESSINGS TO BLE INTACT AND CHANGED BY DAY RN. ENCOURAGED ELEVATION OF BLE AT JULI. IV PATENT AND SL. PLAN FOR POTENTIAL D/C HOME ON HOSPICE TODAY. REPORT GIVEN TO DAY RN.
[2024-10-17 09:22] VITALS: BP 95/66
--- NOTE | 2024-10-17 14:32 | NUR ---
SUMMARY PATIENT MEDICATED FOR PAIN X1 TODAY, REPOSITIONED WITH PILLOWS AND LEGS WRAPPED WITH KERLEX AND AKIRA WRAP FOR SWELLING AND WEEPING. L FOOT WITH MEPILEX +3 EDEMA TO LE. AQUACEL TO R HIP AND LE WITH SOME SHADWOING, DRESSING IS IN INTACT. CAREMANAGEMENT WITH FAMILY IN ROOM FOR DC PLANNING. PATIENT IS ALERT AND ORIENTED USES CALL LIGHT.
--- NOTE | 2024-10-17 15:00 | NUR ---
PATIENT REQUESTED FEET TO BE UNWRAPPED, NOTED MODERATE YELLOW DRNG, TO LE THIS RN TOOK PITURES OF L HEEL, L FOOT. SWELLING IS STILL +3.
[2024-10-17 15:28] VITALS: BP 115/61
--- NOTE | 2024-10-17 15:50 | NUR ---
ASSUMED CARE FROM CHAITANYA COONEY. PT RESTING IN BED AT THIS TIME, DENIES NEEDS. MEPILEX TO LLE CHANGED.
[2024-10-17] MEDS ORDERED: Guaifenesin/Dextromethorphan Syrup 5 ML UDC PO PRN (17:50)
--- NOTE | 2024-10-17 18:02 | NUR ---
UPDATE NO ACUTE CHANGES SINCE ASSUMPTION OF CARE. PT STATES HE FEELS BETTER TODAY AND IS IN GOOD SPIRITS. RESTING COMFORTABLY, EATING DINNER, W/ CALL LIGHT IN REACH.
[2024-10-17 19:25] VITALS: BP 115/71
[2024-10-18 04:17] VITALS: BP 128/74
--- NOTE | 2024-10-18 06:31 | NUR ---
SHIFT SUMMARY POD 4 RIGHT HIP RIGHT HIP NAILING. AQUACEL DRESSINGS X3 CHANGED THIS SHIFT. BLE DRESSINGS CHANGED PER NEW WOUND CARE ORDERS, PT TOLERATED DRESSING CHANGES WELL. PAIN MANAGED PER EMAR. PT REPORTS IMPROVED SLEEP LAST NIGHT. INCREASED COUGHING NOTED T/O NIGHT. PT MEDICATED X 1 FOR COUGH, DECLINED FURTHER DOSES. HOB ELEVATED JULI, PT REFUSED I.S. OR FLUTTER VALVE. ENCOURAGED TURN, COUGH, DEEP BREATHING; PT ABLE TO DEMONSTRATE. CONT BIOX IN PLACE. SPO2 AT 93% ON 4L NC. REPOSTITIONED PT ALLOWED. IVF DRESSING TO RIGHT AC ALSO CHANGED. JULI PO INTAKE. PL[facility]. WILL GIVE REPORT TO ONCOMING RN.
[2024-10-18 07:37] VITALS: BP 115/68
[2024-10-18 11:36] VITALS: BP 104/58
[2024-10-18 14:39] VITALS: BP 123/61
[2024-10-18 14:40] VITALS: BP 123/61
[2024-10-18] MEDS ORDERED: Furosemide 10 MG/ML 4ML Vial IV SCH (15:00)
[2024-10-18] MEDS ORDERED: MethylPREDNISolone Sod Succ 125 MG Vial IV STA (15:04)
[2024-10-18] MEDS ORDERED: Ipratropium/Albuterol SulF 2.5-0.5MG/3 ML Amp INH SCH (15:10)
--- NOTE | 2024-10-18 15:34 | NUR ---
RESPIRATORY: PT RESPIRATORY RATE HAS BEEN INCREASING THROUGHOUT SHIFT. PT HAVING AUDIBLE EXPIRATORY WHEEZING. PT HAS AUDIBLE UPPER AIRWAY CRACKLES. ENCOURAGED COUGHING. ATTEMPT YONKER SUCTIONING BUT PT UNABLE TO COUGH ANYTHING UP. SATS 92% ON 4.5L O2. O2 DEMAND HAS INCREASED FROM 3L. NEW LOW GRADE TEMP. DR OBRIEN NOTIFIED AND IN TO SEE PATIENT. NEW ORDERS AKNOWLEDGED. WILL CONT TO MONITOR.
--- NOTE | 2024-10-18 17:27 | NUR ---
PT HAS BEEN STABLE THIS SHIFT. PT IS WEAK AND IS UNABLE TO GET OOB. PT DID BED EXERCISES WITH THERAPY. PT AQUACEL DRESSINGS CDI X3. PT HAS BL DRESSINGS ON LEGS THAT ARE CDI. HEELS FLOATED. PT HAS HAD LOOSE WEAK COUGH AND WHEEZING. RESP RATE WENT UP THROUGHOUT SHIFT. PT O2 NEEDS HAVE ALSO INCREASED. PT GIVEN 1 DOSE LASIX AND SOLUMEDROL. ALSO STARTED ON SCHEDULED RT TREATMENTS. PT SEEMS TO BE RESPONDING RESP RATE HAS IMPROVED. PT HAD LOW GRADE TEMP X1. FLUTTER VALVE USED WELL WITH RT. PT PAIN CONTROLLED WITH PRN MEDS. USES CALL LIGHT APPROPRIATELY NEEDED. AWAITING TRANSFER TO HOSPICE CARE.
[2024-10-18 19:53] VITALS: BP 114/54
--- NOTE | 2024-10-19 05:37 | NUR ---
NOC SUMMARY- PT PAIN MANAGED WELL. PT HAS BEEN SLEEPING SOUNDLY THROUGHOUT SHIFT. PT REPOSITIONED FREQUENTLY. PT DRESSING ON BLE C/D/I. CALL LIGHT IN REACH.
[2024-10-19 05:39] VITALS: BP 110/66
[2024-10-19 06:20] LABS: Bun/Creatinine Ratio 31.4 (12.0-20.0); Creatinine, Blood 0.54 mg/dL (0.60-1.20)
[2024-10-19 07:11] VITALS: BP 104/58
[2024-10-19 14:33] VITALS: BP 94/55
[2024-10-19 14:34] VITALS: BP 103/53
[2024-10-19] MEDS ORDERED: HYDROmorphone HCl/Pf 1MG SYR IV PRN (14:55)
--- NOTE | 2024-10-19 18:06 | NUR ---
PATIENT IS ALERT AND ORIENTED AND COOPERATIVE WITH CARE. WEARING OXYGEN FOR COMFORT. BREATHING TREATMENT NEEDED. BLE EDEMA. BLE WOUNDS WRAPPED WITH GAUZE, DRESSING CHANGED YESTERDAY. FEET ELEVATED ON PILLOWS. PAIN MEDICATIONS NEEDED. TOLERATING DIET. SLEEPS BETWEEN MEALS.
[2024-10-19 19:40] VITALS: BP 100/56
[2024-10-20] VITALS (7 sets, daily range): BP systolic 85–108; BP diastolic 49–57
--- NOTE | 2024-10-20 05:19 | NUR ---
NOC SUMMARY- NO NEW ISSSUES. PT PAIN MANAGED WELL. PT SLEEPING WITH A OXYMIZER AND TOLERATING. PT REPOSITIONED FREQUENTLY. PT BLE DRESSING ARE C/D/I. PT VOIDING. PT AQUACEL DRESSINGS REMAIN C/D/I. CALL LIGHT IN REACH.
[2024-10-20] MEDS ORDERED: LORazepam 1 MG Tab PO PRN (08:35)
[2024-10-20] MEDS ORDERED: HYDROmorphone HCl/Pf 1MG SYR IV PRN (08:45)
[2024-10-20] MEDS ORDERED: LORazepam 0.5 MG Tab PO PRN (08:45)
[2024-10-20 08:59] LABS: PCO2 Venous 35.4 mmHg (38-42)
[2024-10-20 09:00] LABS: Base Excess Venous 8.5 mmol/L
[2024-10-20] MEDS ORDERED: Furosemide 10 MG / ML 2ML Vial IV SCH (09:00)
[2024-10-20 09:01] LABS: pH Blood Venous 7.55 (7.34-7.37)
[2024-10-20 09:04] LABS: Hematocrit 34.9 % (37.0-53.0); Hemoglobin 11.4 g/dL (13.5-17.5); Mean Corpuscular HGB 32.2 pg (26.0-34.0); Mean Corpuscular HGB Conc 32.7 g/dL (31.5-36.5); Mean Corpuscular Volume 99 fL (80-100); Mean Platelet Volume 10.8 fL (9.1-12.4); NRBC ABSOLUTE 0.02 K/mm3 (0.00-0.02); NRBC Auto 0.1 /100 WBC (0.0-0.2); Platelet Count 202 K/mm3 (150-400); RDW Coefficient Variation 16.8 % (11.7-14.2); RDW Standard Deviation 61.8 fL (35.1-46.3); Red Blood Cell Count 3.54 M/mm3 (4.30-5.90)
[2024-10-20 09:26] LABS: Bun/Creatinine Ratio 36.8 (12.0-20.0); Calcium, Blood 7.8 mg/dL (8.5-10.1); Creatinine, Blood 0.54 mg/dL (0.60-1.20); Potassium, Blood 3.8 mmol/L (3.5-5.5)
--- NOTE | 2024-10-20 09:36 | NUR ---
NOTIFIED DR. SHARMA OF CRITICAL ABG VALUE W/ NO ORDERS RECIEVED. PT DENIES SOB BUT IS REQUIRING OXIMASK 10L TO KEEP O2 SATS >90%. CONT BIOX APPLIED. CONSULTED W/ DR. SHARMA REGARDING PT'S CODE STATUS AND POSSIBILITY FOR COMFORT CARE CARE DUE TO PT BEING DC'D ON HOSPICE, DR. SHARMA TO SPEAK W/ PT.
[2024-10-20 10:26] LABS: BAND PERCENT MAN 7 % (0-8); BASOPHILS PERCENT MAN 0 % (0-2); EOSINOPHILS PERCENT MAN 0 % (0-6); LYMPHOCYTES ABSOLUTE MAN 0.68 K/mm3 (0.84-5.20); LYMPHOCYTES PERCENT MAN 5 % (21-46); MONOCYTES PERCENT MAN 0 % (4-13); MYELOCYTE ABSOLUTE MAN 0.13 K/mm3 (0.00-0.00); MYELOCYTE PERCENT MAN 1 % (0-0); NEUTROPHILS ABSOLUTE MAN 12.87 K/mm3 (1.96-9.15); SEG NEUTROPHILS PERCENT MAN 87 % (41-73); TOTAL CELLS COUNTED 100
[2024-10-20] MEDS ORDERED: Acetaminophen 500 MG Tab PO SCH (12:00)
--- NOTE | 2024-10-20 14:23 | NUR ---
INITIAL PC VISIT: MET WITH PT AFTER HE HAD HIS CT PE STUDY. PT IN BED, HE IS AWAKE, WEARING OXIMASK O2 AT 11 LPM. PT IS ABLE TO TALK IN SHORT SENTENCES. DISCUSSED HIS CURRENT SITUATION. PT AGREES HE WAS LIVING HOME ALONE ON HOSPICE SERVICES FOR CANCER. HE STATES HE LIVES ALONE. PT FELL AND SUSTAINED HIP FX WHICH HE HAS ALREADY UNDERGONE SURGERY TO REPAIR. PT AGREES THE NEW PLAN IS FOR HIM TO GO TO [facility] WITH HOSPICE SERVICES. DISCUSSED WHAT HIS GOALS ARE AT THIS TIME IN REGARDS TO POTENTIAL PE. PT DOES WANT FULL TREATMENT IF HE HAS A BLOOD CLOT IN HIS LUNG. PT DOES WANT TO OPTIMIZE HIS REHAB POTENTIAL IN REGARDS TO WORKING WITH PHYSICAL THERAPY UNTIL HE IS DISCHARGED. SYMPTOM MANAGEMENT: PT REPORTS HIS PAIN IS MANAGED. HIS ONLY COMPLAINT IS HE DID NOT SLEEP WELL LAST NIGHT AND HE TAKES SEROQUEL FOR SLEEP AID. REVIEWED MAR WITH BS RN. PT SEROQUEL WAS HELD LAST NIGHT. RN STATED SHE WILL PASS ON PT TAKES FOR SLEEP TO NOELLE RN.
[2024-10-20] MEDS ORDERED: CefTRIAXone Sodium 2,000 MG in NS 100 ML IV SCH (14:38)
--- NOTE | 2024-10-20 16:13 | NUR ---
TRANSFER NOTE PT IS A/OX4, RESPONSIVE, ANSWERING QUESTIONS APPROPRIATELY. HAS BEEN REQUIRING 10-13L OXIMASK TODAY TO KEEP O2 SATS >92%. PT ENCOURAGED TO USE INCENTIVE SPIROMETER AND TAKE DEEP BREATHS. CONT BIOX ON. BREATHING TREATMENTS W/ RT, CRACKLES HEARD IN UPPER LUNG LOBES, LOWER LOBES DIMINISHED. PT DENIES SOB. CONSULTED W/ DR. SHARMA REGARDING OXYGEN NEEDS, PT TO TRANSFER TO PCU 19 WHEN BED IS AVAILABLE AND TO KEEP USING OXIMASK. DRESSINGS TO R HIP CHANGED BEFORE TRANSFER. CAP REFILL 2 SECS TO R TOES, PT ABLE TO WIGGLE TOES BILATERALLY. PT MEDICATED FOR PAIN W/ ROXINOL AND TYLENOL. PT CURRENTLY RESTING W, LEGS ELEVATED, DENIES SOB. REPORT GIVEN TO REBEKA COONEY, PT TRANSFERED TO PCU ROOM 19, ONCE BED WAS AVAILABLE, W/ ALL BELONGINGS.
--- NOTE | 2024-10-20 16:35 | NUR ---
TRANSFER/CARE ASSUMPTION: PT HAS BEEN TRANSFERED TO PCU, ARRIVED APPROX 1620 AND ASSUMED CARE OF PT UPON ARRIVAL. PT IS A&Ox4, GENERALLY WEAK, LETHARGIC, ABLE TO MAKE NEEDS KNOWN. RESPIRATIONS 20/MIN, SLIGHTLY LABORED AT REST, DYSPNEA W/ACTIVITY, O2 SATS 88-90% ON FACE MASK AT 10L/MIN, LS COARSE T/OUT. SR ON MONITOR, RATE 91, PT DENIES CP. BT PRESENT TO ALL QUADRANTS ON AUSCULTATION, ABDOMEN SOFT. AQUACEL DRESSINGS PATENT, C/D/I TO RLE. CURRENT PLAN - PT IS DECLINING BIPAP/CPAP AT THIS TIME, STATES HE WOULD LIKE ABX THERAPY, O2 THERAPY, PAIN MEDICATION, ETC IN ATTEMPTS TO HELP IMPROVE HIS SYMPTOMS TO WHERE HE CAN DISCHARGE ON HOSPICE LIKE PRIOR TO ADMISSION. PT RESTING IN BED W/CALL LIGHT IN REACH, WILL CONTINUE TO MONITOR AND TREAT ACCORDINGLY.
[2024-10-20] MEDS ORDERED: Apixaban 5 MG Tab PO SCH (21:00)
[2024-10-20 22:39] LABS: Adenovirus Not Detected (NOT DETECT); Bordetella pertussis Not Detected (NOT DETECT); Chlamydophila pneumoniae Not Detected (NOT DETECT); Coronavirus 229E Not Detected (NOT DETECT); Coronavirus HKU1 Not Detected (NOT DETECT); Coronavirus NL63 Not Detected (NOT DETECT); Coronavirus OC43 Not Detected (NOT DETECT); Human Metapneumovirus Not Detected (NOT DETECT); Human Rhinovirus/Enterovirus Not Detected (NOT DETECT); Influenza A/2009-H1 Detected (NOT DETECT); Influenza A/H1 Detected (NOT DETECT); Influenza A/H3 Not Detected (NOT DETECT); Influenza B Not Detected (NOT DETECT); Mycoplasma pneumoniae Not Detected (NOT DETECT); Parainfluenza Virus 1 Not Detected (NOT DETECT); Parainfluenza Virus 2 Not Detected (NOT DETECT); Parainfluenza Virus 3 Not Detected (NOT DETECT); Parainfluenza Virus 4 Not Detected (NOT DETECT); Respiratory Syncytial Virus Not Detected (NOT DETECT); SARS-Cov-2 (COVID-19), BioFire Not Detected (NOT DETECT)
[2024-10-21] VITALS (7 sets, daily range): BP systolic 80–112; BP diastolic 47–62
[2024-10-21 05:06] LABS: BASOPHILS ABSOLUTE AUTO 0.02 K/mm3 (0.00-0.23); BASOPHILS PERCENT AUTO 0 % (0-2); EOSINOPHILS PERCENT AUTO 0 % (0-6); Hemoglobin 12.1 g/dL (13.5-17.5); Mean Corpuscular HGB 31.9 pg (26.0-34.0); Mean Corpuscular HGB Conc 32.7 g/dL (31.5-36.5); Mean Corpuscular Volume 98 fL (80-100); Mean Platelet Volume 11.2 fL (9.1-12.4); Platelet Count 185 K/mm3 (150-400); RDW Coefficient Variation 16.8 % (11.7-14.2); RDW Standard Deviation 60.9 fL (35.1-46.3); Red Blood Cell Count 3.79 M/mm3 (4.30-5.90); White Blood Cell Count 11.67 K/mm3 (4.00-11.30)
[2024-10-21 05:15] LABS: IMMATURE GRAN ABSOLUTE AUTO 0.76 K/mm3 (0.00-0.10); IMMATURE GRAN PERCENT AUTO 7 % (0-1); LYMPHOCYTES ABSOLUTE AUTO 0.77 K/mm3 (0.84-5.20); LYMPHOCYTES PERCENT AUTO 7 % (21-46); MONOCYTES ABSOLUTE AUTO 0.12 K/mm3 (0.16-1.47); MONOCYTES PERCENT AUTO 1 % (4-13); NEUTROPHILS PERCENT AUTO 86 % (41-73)
[2024-10-21 05:44] LABS: BAND PERCENT MAN 1 % (0-8); BASOPHILS PERCENT MAN 0 % (0-2); EOSINOPHILS PERCENT MAN 0 % (0-6); LYMPHOCYTES ABSOLUTE MAN 0.35 K/mm3 (0.84-5.20); LYMPHOCYTES PERCENT MAN 3 % (21-46); METAMYELOCYTE ABSOLUTE MAN 0.35 K/mm3 (0.00-0.00); METAMYELOCYTE PERCENT MAN 3 % (0-0); MONOCYTES ABSOLUTE MAN 0.23 K/mm3 (0.16-1.47); MONOCYTES PERCENT MAN 2 % (4-13); NEUTROPHILS ABSOLUTE MAN 10.73 K/mm3 (1.96-9.15); SEG NEUTROPHILS PERCENT MAN 91 % (41-73); TOTAL CELLS COUNTED 100
[2024-10-21 06:11] LABS: Albumin, Blood 1.4 g/dL (3.4-5.0); Albumin/Globulin Ratio 0.4 (0.8-1.8); Bilirubin, Total 0.5 mg/dL (0.1-1.0); Bun/Creatinine Ratio 42.5 (12.0-20.0); Calcium, Blood 7.9 mg/dL (8.5-10.1); Creatinine, Blood 0.47 mg/dL (0.60-1.20); Globulin, Blood 3.9 g/dL (2.2-4.0); Magnesium, Blood 1.9 mg/dL (1.6-2.4); Phosphorus, Blood 3.9 mg/dL (2.5-4.9); Potassium, Blood 3.8 mmol/L (3.5-5.5); Total Protein, Blood 5.3 g/dL (6.4-8.2)
--- NOTE | 2024-10-21 06:35 | NUR ---
PT O2 DEMAND INCREASED DURING SHIFT, PT IS NOW 14L ON HIGH FLOW CANNULA. PT PREVIOUSLY WAS ON AN OXIMASK BUT WAS UNCOMFORTABLE. HIGH FLOW CANNULA IS HUMIDIFIED. PT B/P WERE SOFT W/O CHANGE TO HR. PT IN DROPLET PRECAUTIONS FOR POSITIVE FLU RESULT. PT DID RECEIVE ROXINOL X2 WHICH DOES HELP MANAGE PAIN WELL SCHEDULED TYLENOL. PT ABLE TO TAKE PILLS WHOLE WITH WATER. RT LEG SURGICAL DRESSINGS REMAIN CLEAN/DRY/INTACT. PT AOX4, SOMEWHAT SOMNOLENT. PT HAD GOOD URINARY OUTPUT, URINE KIRIT AND CLEAR.
[2024-10-21 08:42] LABS: Bicarbonate Venous 32.7 mmol/L (24.0-30.0); PCO2 Venous 48.1 mmHg (38-42); pH Blood Venous 7.47 (7.34-7.37)
[2024-10-21] MEDS ORDERED: Oseltamivir Phosphate 75 MG Cap PO SCH (09:00)
--- NOTE | 2024-10-21 10:00 | NUR ---
AM NOTE: PATIENT ALERT AND ORIENTED. VERY SOFT SPOKEN. INTERMIT BACK AND RIGHT LEG PAIN. Q2 TURNING AND NEEDED. PERRLA, WEARING GLASSES. USING CALL LIGHT FOR ASSISTANCE. WEAKNESS THROUGHOUT. TOE TOUCH WEIGHT BEARING ON RIGHT SIDE. ON 15 L O2 [facility] HIGH FLOW NASAL CANNULA WITH HUMIDIFICATION. SATING ABOVE 85%. DR. SHARMA TO BEDSIDE THIS AM. PATIENT OKAY WITH AIRVO IF NEEDED. ORDERS TO PLACE AIRVO IF PATIENT IS SATING BELOW 85%. COARSE LUNG SOUNDS THROUGHOUT. MOIST SOUNDING COUGH. EVEN AND UNLABORED RESPIRATIONS AT REST. TELE SHOWING SR WITH HR 60-70'S. DENIES CHEST PAIN/PRESSURE/PALPITATIONS. SBP 100'S. NO EDEMA NOTED. IV ABX INFUSED. BOWEL TONES PRESENT THROUGHOUT. TOLERATING PO DIET. ATTENDS IN PLACE. USING URINAL WITH ASSISTANCE. DENIES ABDOMINAL PAIN/NAUSEA. LEFT FOOT BLISTERS WITH DRESSING CHANGE. RIGHT FEMUR DRESSINGS C/D/I WITH LAST DRESSING CHANGE ON 10/20/[address] SHARMA TO BEDSIDE, THIS RN PRESENT FOR MD SANTILLAN. ORDERS TO MAINTAIN O2 SATS ABOVE 85%. PATIENT STATES HE IS OKAY WITH AIRVO IF NEEDED BUT DENIES CPAP/BIPAP AND RESTATES HIS DNR STATUS. DNR BAND IN PLACE. CALL LIGHT IN REACH.
--- NOTE | 2024-10-21 13:00 | NUR ---
SISTER RENY CALLED AND UPDATED BY THIS RN.
--- NOTE | 2024-10-21 17:40 | NUR ---
SHIFT SUMMARY: PATIENT REMAINS ALERT AND ORIENTED. USING ALL LIGHT FOR NEEDS. Q2 TURNING ENCOURAGED. PATIENT REFUSED ONE TURN THIS AFTERNOON. INTERMIT BILATERAL LEG PAIN WELL LOW BACK PAIN. RIGH HIP DRESSINGS REMAIN C/D/I. BILATERAL LEGS WARM TO TOUCH. PATIENT ABLE TO MOVE BILATERAL LOWER EXTREMITIES AND HAS STRONG PULSES. LEFT FOOT DRESSING CHANGE PER WOUND ORDERS. SKIN BREAKDOWN NOTED TO COCCXY AND INNER LEFT THIGH, PICTURES UPDATED IN CHART. MEPILEX IN PLACE OVER COCCYX. REMAINS ON 15L HIGH FLOW NASAL CANNULA SATING ABOVE 85-93%. LUNG SOUNDS CONTINUE TO BE COARSE WITH MOIST SOUNDING COUGH. TOLERATING PO DIET ALTHOUGH DENIES DINNER AT THIS TIME. DRINKING WATER. REFUSED BED BATH BUT ALLOWED THIS RN TO CLEANSE SABIHA AREA AND ARMPITS. SISTER RENY UPDATED BY THIS RN WITH PATIENT PERMISSION. DENIES NEEDS AT THIS TIME. SITTING UP IN BED WATCHING TV. CALL LIGHT IN REACH.
[2024-10-22 00:42] VITALS: BP 89/55
[2024-10-22 03:33] VITALS: BP 81/58
[2024-10-22 04:17] LABS: Hematocrit 39.1 % (37.0-53.0); Hemoglobin 12.8 g/dL (13.5-17.5); Mean Corpuscular HGB 32.6 pg (26.0-34.0); Mean Corpuscular HGB Conc 32.7 g/dL (31.5-36.5); Mean Corpuscular Volume 100 fL (80-100); Mean Platelet Volume 11.6 fL (9.1-12.4); NRBC ABSOLUTE 0.02 K/mm3 (0.00-0.02); NRBC Auto 0.2 /100 WBC (0.0-0.2); Platelet Count 217 K/mm3 (150-400); RDW Coefficient Variation 16.8 % (11.7-14.2); RDW Standard Deviation 61.8 fL (35.1-46.3); Red Blood Cell Count 3.93 M/mm3 (4.30-5.90); White Blood Cell Count 10.73 K/mm3 (4.00-11.30)
[2024-10-22 04:38] LABS: Albumin, Blood 1.4 g/dL (3.4-5.0); Albumin/Globulin Ratio 0.3 (0.8-1.8); Bilirubin, Total 0.5 mg/dL (0.1-1.0); Bun/Creatinine Ratio 33.4 (12.0-20.0); Creatinine, Blood 0.6 mg/dL (0.60-1.20); Globulin, Blood 4.2 g/dL (2.2-4.0); Phosphorus, Blood 4.1 mg/dL (2.5-4.9); Potassium, Blood 3.5 mmol/L (3.5-5.5); Total Protein, Blood 5.6 g/dL (6.4-8.2)
[2024-10-22 05:11] LABS: BAND PERCENT MAN 11 % (0-8); BASOPHILS PERCENT MAN 0 % (0-2); EOSINOPHILS PERCENT MAN 0 % (0-6); LYMPHOCYTES ABSOLUTE MAN 1.28 K/mm3 (0.84-5.20); LYMPHOCYTES PERCENT MAN 12 % (21-46); METAMYELOCYTE ABSOLUTE MAN 0.32 K/mm3 (0.00-0.00); METAMYELOCYTE PERCENT MAN 3 % (0-0); MONOCYTES PERCENT MAN 0 % (4-13); MYELOCYTE ABSOLUTE MAN 0.32 K/mm3 (0.00-0.00); MYELOCYTE PERCENT MAN 3 % (0-0); NEUTROPHILS ABSOLUTE MAN 8.69 K/mm3 (1.96-9.15); PLASMA CELLS PERCENT MAN 1 % (0-0); SEG NEUTROPHILS PERCENT MAN 70 % (41-73); TOTAL CELLS COUNTED 100
--- NOTE | 2024-10-22 06:01 | NUR ---
SHIFT SUMMARY PT IS A&O X4, SOFT SPOKEN, ABLE TO MAKE NEEDS KNOWN, OBEYS COMMANDS, GENERALIZED WEAKNESS, PT IS ABLE TO MOVE ARMS TO DRINK AND WIGGLE TOES ON THE RIGHT AND LEFT SIDE, BEDREST WITH Q2 TURNING, PT IS S/P FEMUR REPAIR D7/ TOE TOUCH ONLY ON THAT RIGHT SIDE/ PT DID NOT AMBULATE THIS SHIFT. CONTINUOUS SPO2, SPO2 GREATER 85% ON 13L O2 VIA OXIMASK/ WHILE SLEEPING PT IS ABLE TO BE TIRATED DOWN ON O2 BUT WHEN AWAKE PT NEEDING 15L O2 VIA HIGH FLOW NC/ @ APPROX 0400 PT SPO2 SUSTAINING 80-84%- SWITCHED PT TO OXIMASK FROM HIGH FLOW NC AT THIS TIME, PT HAVING OCCASIONAL MOIST NONPRODUCTIVE COUGH. LUNGS SOUND DIM WITH COARSE CRACKLES IN THE BASES AND FINE CRACKLES IN THE UPPER LOBES. CONTINUOUS TELE MONITORING, SINUS 70-90 S, PT DENIES CHEST P/P, PULSES PRESENT T/O/ RAY LEFT PEDAL DUE TO WOUND DRESSING/ LEFT TOES CAP REFILL LESS THAN 3 SECONDS AND ARE WARM, PT OCCATIONALLY HAVING SOFT BP WITH SBP 80 S MAP THE MAJORITY OF THE NIGHT GREATER THAN 65, FROM APPROX 0000 TO 0100 PT MAP BETWEEN 61-64/PT ALERT REPORTING SOME DIZZINESS. BOWEL TONES PRESENT IN ALL 4Q, PT DENIES FEELINGS OF CONSTIPATION. PT HAS MULTILE WOUNDS TO THE RIGHT THIGH, RIGHT HIP, COCCYX, AND LEFT FOOT. MEPIPLEX TO THE RIGHT THIGH AND COCCYX ARE C/D/I. DRESSINGS ON THE RIGHT HIP IS C/D/I. DRESSING ON THE LEFT FOOT IS C/D/I. BED LOWEST POSITION, CALL LIGHT IN REACH, AWAITING TO GIVE REPORT TO ONCOMING RN.
[2024-10-22 07:35] VITALS: BP 93/62
[2024-10-22] MEDS ORDERED: Mometasone Furoate Inhaler 220 mcg 14 ACT INH SCH (08:25)
[2024-10-22 08:47] LABS: Base Excess Venous 9.4 mmol/L; Bicarbonate Venous 29.8 mmol/L (24.0-30.0); PCO2 Venous 54.9 mmHg (38-42)
[2024-10-22] MEDS ORDERED: Loratadine 10 MG Tab PO SCH (09:00)
[2024-10-22] MEDS ORDERED: Midodrine 5 MG Tab PO SCH (09:20)
--- NOTE | 2024-10-22 09:28 | NUR ---
DR. MCBRIDE AND DR. SHARMA CAME AND ROUNDED ON THE PT. THE PT WAS SWITCHED TO THE AIRVO FROM 15L HFNC. CURRENT ARIVO SETTINGS 50L @ 75%. SP02 GOAL >88%. THE PT HAD SOME ANTIBIOTICS SWITCHED PER DR. MCBRIDE RECCOMENDATIONS. WHILE DR. SHARMA WAS IN THE ROOM WE SPOKE ABOUT PAIN MANAGEMENT AND HYPOTENSION. THE PT WAS STARTED ON MIDODRINE 10MG TID AND HOLDING PARAMETERS WERE STARTED FOR HIS DAILY LASIX. SEE NOTES FOR UPDATES.
[2024-10-22] MEDS ORDERED: Vancomycin HCL 1,750 MG in NS 500 ML IV SCH (10:00)
[2024-10-22 10:49] VITALS: BP 101/60
[2024-10-22 11:52] VITALS: BP 99/64
[2024-10-22] MEDS ORDERED: Cefepime HCl 2,000 MG in NS 100 ML IV SCH (12:00)
[2024-10-22] MEDS ORDERED: Naloxone HCl 0.4MG / ML 1ML Vial IV PRN (13:35)
[2024-10-22] MEDS ORDERED: HYDROmorphone HCl/Pf 1MG SYR IV ONE (13:35)
--- NOTE | 2024-10-22 13:36 | NUR ---
THE PT HAS BEEN ON THE AIRVO THROUGHOUT THE MORNING. HE CONTINUES TO DROP AND IS MAXED OUT ON THE AIRVO. HIS BLOOD PRESSURE IS STABLE WITH MIDODRINE STARTED. HIS PAIN CONTINUES TO BE UNMANAGED AND A OT ORDER OF DILUADID WAS ORDERED. THE PT HAS NOT VOIDED THIS SHIFT SO DR. SHARMA WOULD LIKE THE PT BLADDER SCANNED. MORLEY WILL BE PLACED FOR WOUNDS IF HE IS RETAINING. PALLITAIVE CARE WAS CALLED AND WILL COME DOWN TO TALK WITH THE PATIENT.
[2024-10-22] MEDS ORDERED: Atropine Sulfate 1% Opth Soln 2ML BTL SL PRN (14:20)
[2024-10-22] MEDS ORDERED: LORazepam 1 MG Tab PO PRN (14:20)
[2024-10-22] MEDS ORDERED: Scopolamine Hydrobromide Patch TOP PRN (14:20)
[2024-10-22] MEDS ORDERED: Morphine Sulfate 20 MG/1ML 1 ML Oral Syringe SL PRN (14:20)
--- NOTE | 2024-10-22 14:35 | NUR ---
THE PT EXPRESSED THAT HE IS WANTING TO GO COMFORT CARE AND GET HIS BREATHING AND PAIN UNDERCONTROL. THE PT VERBALIZED UNDERSTANDING OF WHAT COMFORT CARE IS. PALLIATIVE CAME DOWN AND SAW THE PT WELL. SEE NOTES. PT IS OFFICALLY COMFORT CARE.
--- NOTE | 2024-10-22 15:00 | NUR ---
THIS RN SPOKE TO THE PT'S DAUGHTER RENY PER PT REQUEST AND UPDATED HER ABOUT TRANSITIONING TO COMFORT CARE.
--- NOTE | 2024-10-22 16:57 | NUR ---
BEDSIDE RN CALLED FOR PC TO FOLLOW UP ON CONVERSATION ABOUT CC. PATIENT IN IN BED WITH INCREASED RESPIRATIONS, RR 30. PATIENT EXPRESSED THAT HE FEELS LIKE HE CANNOT BREATH. WE DISCUSSED TRANSITIONG TO COMFORT CARE AND PROVIDING MEDICATIONS THAT WERE AVALIABLE TO HIM ON HOSPICE. HE STATED "I'M DONE, I DONT WANT TO DO THIS ANYMORE" HE WAS AGREEABLE TO TRANSITIONING TO COMFORT CARE. CALLED PROVIDER AND ORDERS PLACED. DISCUSSED WITH BEDSIDE RN
--- NOTE | 2024-10-22 17:06 | NUR ---
TX SUMMARY PT TRANSFERING TO 302, REPORT GIVEN TO EBENEZER COONEY. THE PT IS DROWSY, BUT REMAINS ORIENTED. HE IS CURRENTLY SLEEPING THE ROOM. HIS PAIN AND AIR HUNGER ARE CONTROLLED PER EMAR. HE REMAINS ON THE AIRVO AT THIS TIME. MALE PURICK STILL IN PLACE, AND PT IS AGREEABLE TO A MORLEY WHEN HE BECOMES MORE SOMULENT IF IT IS NEEDED. THE PT'S DRESSINGS ON HIS FOOT, HIP, AND BUTTOCKS WERE CHANGED THIS SHIFT. ALL BELONGINGS ARE PACKED UP AND SENT WITH THE PT. NO FURTHER NOTES FROM THIS RN.
[2024-10-22] MEDS ORDERED: Vancomycin HCL 1,250 MG in NS 250 ML IV SCH (18:00)
--- NOTE | 2024-10-22 18:34 | NUR ---
TRANSFER NOTE PATIENT ARRIVED TO ROOM 302 THIS EVENING, PLEASANT AND COOPERATIVE WITH STAFF. SKIN ASSESSMENT COMPLETED, DRESSING CHANGED TO LEFT FOOT UPON ARRIVAL. MALE PUREWICK IN PLACE. PATIENT REFUSED DINNER TRAY, REQUESTING ONLY YOGURT AND COFFEE WHICH WAS PROVIDED. CONTINUES WITH AIRVO. DENIES PAIN AT THIS TIME. NO OTHER CONCERNS. WILL CONTINUE COMFORT MEASURES.
--- NOTE | 2024-10-23 03:18 | NUR ---
SHIFT SUMMARY/ COMFORT CARE NOTE PT IS A/O X3, ABLE TO MAKE HIS NEEDS KNOWN AND COOPERATIVE WITH CARE. PT REFUSED Q2HR TURNING. PUREWICK IN PLACE, DRAINING TEA COLOR URINE. MEDICATED PER EMAR WITH COMFORT CARE MEDICATIONS FOR PAIN. PT REPORTS EFFECTIVE. PT REMAINS ON AIRVO. DENIES SOB. PT AWAKE HALF OF THIS SHIFT. NO ACUTE EVENTS. BED AT THE LOWEST POSITION, CALL LIGHT W/I REACH. PT CALLS APPROPRIATELY.
[2024-10-23 07:54] VITALS: BP 89/57
[2024-10-23] MEDS ORDERED: ZINC OXIDE/PETROLATUM, YELLOW 1 APPLIC/71 GM PASTE TOP PRN (10:35)
[2024-10-23 13:36] LABS: CORONAVIRUS COVID-19 AG Negative (NEGATIVE)
--- NOTE | 2024-10-23 18:37 | NUR ---
SHIFT SUMMARY PATIENT A/OX4, ABLE TO MAKE NEEDS KNOWN. PLEASANT AND COOPERATIVE WITH CARE. COMFORT MEASURES. PLAN TO DISCHARGE TOMORROW TO [place] [facility]. TRANSPORTATION SCHEDULED FOR 1100 AND RESPIRATORY THERAPY TO HELP TRANSITION PATIENT FROM AIRVO TO NONREBREATHER AT TRANSPORT. PATIENT WILL NEED 2 TANKS OF OXYGEN AT TRANSPORT. ONCE ARRIVES AT [facility] WILL TRANSITION BACK TO AIRVO. PATIENT PROVIDED WITH BEDBATH THIS SHIFT, WOUND CARE PROVIDED. FAMILY CAME TO VISIT PATIENT AND WAS UPDATED ON PATIENT'S STATUS. MEDICATED WITH ROXANOL AND ATIVAN PER OCT. NO OTHER CONCERNS AT THIS TIME.
--- NOTE | 2024-10-24 04:04 | NUR ---
YARDAGE ESTIMATOR SUMMARY REMAINS ON COMFORT MEASURES. HOB ELEVATED AND USING O2 MACHINE AIRVOUGH. REPOSITIONED INTERMITTENTLY HE ALLOWED FOR COMFORT. DROPLET PRECAUTIONS MAINTAINED FOR FLU. MALE PUREWICK IN USE. DRESSINGS INTACT. PLAN TO BE DISCHARGED AROUND 11 AM TODAY [facility]. VOICED FEELING OK, RE PAIN. WILL CONTINUE TO MONITOR
--- NOTE | 2024-10-24 10:56 | NUR ---
Spiritual care visit conducted. Wilbert (pt) is awake and alert. Pt has recently been given pain given pain medication and appears groggy. Assessed pt's concerns [facility]. Pt reports feeling good about it and in his opinion his condition is improving. RT entered room and provided care and was attentive to pt's needs. Assessed pt's spiritual connection. Pt is resigned to letting things flow and is aware that there are things out of his control. Asked pt if there was anything specific to pray for. Pt doesn't have any particular concerns. Prayed with pt for general wellness and he thanked me for the visit.
[2024-10-24] MEDS ORDERED: IPRAT-ALBUT 0.5-3 ML INH (12:59)
[2024-10-24] MEDS ORDERED: DOCU100 PO (13:01)
[2024-10-24] MEDS ORDERED: ATROPINE SULFATE2 M1 SL (13:01)
[2024-10-24] MEDS ORDERED: LORA10ER PO (13:02)
[2024-10-24] MEDS ORDERED: DULCOLAX400 MG/5 M PO (13:04)
[2024-10-24] MEDS ORDERED: MOME220I INH (13:04)
[2024-10-24] MEDS ORDERED: TRANSDERM-SCOP1 EA13 TD (13:07)
[2024-10-24] MEDS ORDERED: ZINC OXIDE57 GM TOP (13:08)
--- NOTE | 2024-10-24 13:09 | NUR ---
SHIFT/DISCHARGE SUMMARY: PT ALERT AND ORIENTED, REPORTS PAIN 8-9/10, MEDICATED PER EMAR FOR COMFORT. PATIENT WAS ON 50L AIRVO, RT SWITCH TO HIFLOW 12L NC, SATTING 92%. PATIENT MEDICATED X1 FOR ANXIETY c GOOD EFFECT. PATIENT DRESSING TO R FEMORAL, L FOOT/THIGH C/D/I. PATIENT INCONTINENT OF BLADDER, SABIHA CARE, ATTENDS CHANGED PRN, AND Q2 TURN. PATIENT RECEIVED SCHEDULED MEDS PER EMAR. PIV WAS DC'D BY ANAT. PATIENT DISCHARGE TO [facility] c HOSPICE CARE. TR GIVEN TO JUANA SILVERIO RN AT 1045. DISCHARGE PACKET GIVEN TO RAJESH DELGADO. ALL PERSONAL BELONGINGS WERE SENT c THE PATIENT. PATIENT LEFT THE ROOM AT 1238 TRANSPORTED VIA [facility].
--- NOTE | 2024-10-24 16:09 | NUR ---
PATIENT WAS ASLEEP DURING MY ROUNDS, DISCUSSED PATIENT WITH MULTIDICIPLINARY TEAM. PATIENT IS DISCHARGING TODAY WITH HOSPICE TO THE [facility]. PATIENT APPEARS COMFORTABLE AND RESPIRATIONS ARE EVEN AND UNLABORED.
[2024-10-27] MEDS ORDERED: Apixaban 5 MG Tab PO SCH (21:00)
== END 2024-10-24 12:15 | disposition hospice, home (50) | DRG 480 ==
LOC: ER 11:41 → SURS 14:53 → ERHOLD 14:53 → SURS 15:42 → PCU 10-20 16:49 → MEDS 10-22 17:33 → ENPENDDIS 10-24 11:52 → MEDS 10-24 12:15
PROVIDERS: Emergency Medicine; Hospitalist; Orthopaedic Surgery; ADMIT Internal Medicine
PROC: 0QS634Z Reposition Right Upper Femur with Internal Fixation Device, Percutaneous Approach (ICD-10-PCS; principal; 2024-10-14 12:30)
PROC: 5A0945A Assistance with Respiratory Ventilation, 24-96 Consecutive Hours, High Flow/Velocity Cannula (ICD-10-PCS; 2024-10-22)
DX: M84.551A Pathological fracture in neoplastic disease, right femur, initial encounter for fracture (principal); I26.99 Other pulmonary embolism without acute cor pulmonale; J96.01 Acute respiratory failure with hypoxia; J10.00 Influenza due to other identified influenza virus with unspecified type of pneumonia; L03.115 Cellulitis of right lower limb; C71.9 Malignant neoplasm of brain, unspecified; C34.90 Malignant neoplasm of unspecified part of unspecified bronchus or lung; Z66 Do not resuscitate; G20.A1 Parkinson's disease without dyskinesia, without mention of fluctuations; F41.9 Anxiety disorder, unspecified; Z51.5 Encounter for palliative care; I10 Essential (primary) hypertension; E78.5 Hyperlipidemia, unspecified; I48.0 Paroxysmal atrial fibrillation; F17.210 Nicotine dependence, cigarettes, uncomplicated; E88.09 Other disorders of plasma-protein metabolism, not elsewhere classified; D72.829 Elevated white blood cell count, unspecified; Z79.899 Other long term (current) drug therapy; Z79.891 Long term (current) use of opiate analgesic; W07.XXXA Fall from chair, initial encounter
CPT/HCPCS: 0202U; 36415; 71045; 71260; 73502; 73552; 80048; 80053; 82803; 83735; 83880; 84100; 84145; 85025; 85027; 85379; 85651; 86140; 87426-QW; 88305; 88311; 88341; 88342; 93306; 94640; 94664; 94760; 94762; 96374; 96375; 97110; 97162; 97166; 97530; 97535; 99284-25; A9270; C1713; C1769; J0690; J0692; J0696; J1100; J1171; J1650; J1940; J2371; J2405; J2704; J2765; J2919; J3010; J3370; J7040; J7050; J7120; Q9967